=== PATIENT | female | born 1995 | race Caucasian/White ===

== ENCOUNTER 2021-11-29 12:31 | Emergency (ER) | payer OTHER, SELFPAY ==
[2021-11-29] VITALS (7 sets, daily range): BP systolic 102–119; BP diastolic 62–78; PULSE 70–90; RESP 16–110; TEMP 36.8; O2SAT 97–100; BMI 25.6
--- NOTE | 2021-11-29 12:27 | ECG_ITS ---
APPROVED REPORT Exam: Resting ECG HR:92 bpm ECG Measurements Heart Rate 92 AXES IN 163 P 68 QRSd 85 QRS 84 QT 358 T 49 QTc 408 Conclusion SINUS RHYTHM WITH SINUS ARRHYTHMIA NORMAL ECG UNCONFIRMED REPORT Electronically signed by : Shamir Bell MD 11/30/2021 15:10:50
--- NOTE | 2021-11-29 13:01 | PC.NURSE ---
ED MD AT BEDSIDE FOR EVALUATION
--- NOTE | 2021-11-29 13:06 | PC.NURSE ---
XR AT BEDSIDE
--- NOTE | 2021-11-29 13:06 | XR_ITS ---
PROCEDURE INFORMATION: Exam: XR Chest Exam date and time: 11/29/2021 1:47 PM Age: 26 years old Clinical indication: Chest wall pain; Additional info: L chest pain TECHNIQUE: Imaging protocol: Radiologic exam of the chest. Views: 1 view. COMPARISON: No relevant prior studies available. FINDINGS: Lungs: No acute airspace disease. Pleural spaces: No pleural effusion. Heart/Mediastinum: Normal configuration of the heart. Bones/joints: Unremarkable. IMPRESSION: No acute airspace or pleural disease.
[2021-11-29 13:17] LABS: Basophils # 0.1 K/mm3 (0-0.2); Eosinophils # 0.3 K/mm3 (0.0-0.4); Eosinophils % 3.3 % (0.1-12.0); Hemoglobin 14.7 g/dL (12.2-16.2); Lymphocytes # 1.1 K/mm3 (0.7-4.5); Lymphocytes % 14.5 % (10-50); Mean Corpuscular HGB Conc 33.5 g/dL (31.8-35.4); Mean Corpuscular Hemoglobin 28.3 pg (27.0-31.2); Mean Corpuscular Volume 84.6 fl (81-99); Mean Platelet Volume 9.8 fl (7.4-10.4); Monocytes # 0.6 K/mm3 (0.1-1.0); Monocytes % 7.2 % (1.7-9.3); Neutrophils # 5.9 K/mm3 (1.8-7.8); Neutrophils % 74.1 % (37.0-80.0); Platelet Count 287 K/mm3 (142-424); Red Cell Distribution Width 14.6 % (11.5-17.5); White Blood Count 7.9 K/mm3 (4.8-10.8)
[2021-11-29 13:19] LABS: Alanine Aminotransferase 21 U/L (12-78); Albumin/Globulin Ratio 1.3 (1.1-1.8); Alkaline Phosphatase 38 U/L (38-126); Anion Gap 12.1 mEq/L (5-15); Aspartate Amino Transferase 41 U/L (14-36); Blood Urea Nitrogen 11 mg/dl (7-17); Carbon Dioxide 29 mmol/L (22.0-30.0); Chloride 103 mmol/L (98-107); Creatinine Clearance Estimated 106 mL/min (50-200); Estimated Glomerular Filt Rate 86 ml/min (>60); GFR (African American) 104 ML/MIN (>60); Globulin 3.2 g/dL (1.3-3.2); Glucose 92 mg/dl (74-100); Potassium 4.1 mmoL/L (3.5-5.1); Sodium 140 mmol/L (136-145); Total Protein,Serum 7.2 g/dl (6.3-8.2)
[2021-11-29 13:21] LABS: Bilirubin,Total 0.1 mg/dl (0.2-1.3)
--- NOTE | 2021-11-29 13:22 | PC.NURSE ---
ROUNDED ON PT, NO NEEDS AT THIS TIME. CALL LIGHT WITHIN REACH
[2021-11-29 13:24] LABS: D-Dimer 0.51 ug/mL (0.0-0.5)
[2021-11-29 13:34] LABS: Troponin I < 0.01 ng/ml (0.00-0.034)
--- NOTE | 2021-11-29 13:41 | PC.NURSE ---
Radiology at bedside.
--- NOTE | 2021-11-29 14:03 | HMH.EDCP ---
Discharge Plan Disposition Patient Disposition: Home, Self-Care Condition: Good Chief Complaint: Chest Pain Prescriptions Prescriptions: No Action No Known Home Medications Referrals Follow up/Referrals: Provider,MD Brayden [Primary Care Provider] - See instructions Activity Restrictions/Add. Instructions Additional Instructions/Restrictions: Follow-up with cardiology, Holter monitor will will be in place for 48 hours and they will be able to interpret it. If you have any other concerning signs or symptoms, return to the emergency department for further evaluation, or your primary care provider. Clinical Impressions Clinical Impression: Chest pain Discharge ED Provider: Live Cai Chest Pain HPI General Chief Complaint: Chest Pain Stated Complaint: CHEST PAIN Time Seen by Provider: 11/29/21 12:45 Mode of Arrival: Ambulatory Source of Information: Patient Limitations: No Limitations Description of Symptoms (Recalled from ER Triage Doc. by RN): PT WITH SHARP CHEST PAIN THAT RADIATES TO LEFT SHOULDER. STARTED LAST NIGHT, IMPROVED SLIGHTLY. WOKE UP THIS AM AND CONTINUES TO HAVE PAIN. REPORTS COUGHT AND SHORTNESS OF AIR. STATES SHE AHS HX OF IRREGULAR HEART BEAT History of Present Illness HPI narrative: Is a 26-year-old female with history of DVT. Patient states they were lying in bed when she had acute onset left upper chest/left shoulder pain. It was 8 out of 10 last night, 7 out of 10 currently. Radiates to her left shoulder. associated with shortness of breath. Exertion exacerbates chest pain and shortness of breath. Tylenol and resting relieves her symptoms. Denies nausea, vomiting, fevers, chills, recent illness, neurologic deficits, or any other concerning history HELLEN Score for Stemi Age of Patient: <30 years old Heart Rate: 70-89 bpm Systolic Blood Pressure: 100-119 mmHg Serum Creatinine: 0.80-1.19 mg/dl CHF Killip Class: I-No CHF Other Risk Factors: None Stemi Risk Score: 59 Related Data Home Medications Medication Instructions Recorded Confirmed No Known Home Medications 11/29/21 11/29/21 Allergies Allergy/AdvReac Type Severity Reaction Status Date / Time latex AdvReac Verified 11/29/21 13:39 ondansetron [From Zofran] AdvReac Verified 11/29/21 13:39 PFSH PFSH Medical History (Updated 11/29/21 @ 15:05 by Live Cai MD) No significant past medical history Surgical History (Updated 11/29/21 @ 12:40 by Tessa El RN) Hx of cholecystectomy Family History (Updated 11/29/21 @ 12:38 by Tessa El RN) Other No significant family history Social History (Updated 11/29/21 @ 12:40 by Tessa El RN) Smoking Status: Never smoker alcohol intake: current current occupational status: employed Travel in the last 8 weeks: None ROS Obtained: Yes All systems reviewed & no additional complaints except as documented Physical Exam General General appearance: alert and in no apparent distress Head Head exam: atraumatic, normocephalic and normal inspection Eye Eye exam: Present normal appearance, PERRL and EOMI ENT ENT exam: Present normal exam, normal oropharynx, mucous membranes moist, TM's normal bilaterally and normal external ear exam Neck Neck exam: Present normal inspection, full ROM and trachea midline; Absent meningismus or lymphadenopathy Chest Chest inspection: Present normal inspection and symmetric chest wall rise; Absent tenderness Respiratory Respiratory exam: Present normal lung sounds bilaterally; Absent respiratory distress Cardiovascular Cardiovascular exam: Present regular rate and normal rhythm; Absent JVD Abdominal Exam Abdominal exam: Present soft and normal bowel sounds; Absent distention, tenderness or guarding Extremities Exam Extremities exam: Present normal inspection, full ROM and normal capillary refill; Absent calf tenderness Back Exam Back exam: Present normal inspection; Absent tenderness
--- NOTE | 2021-11-29 14:08 | CT_ITS ---
PROCEDURE INFORMATION: Exam: CTA Chest With Contrast Exam date and time: 11/29/2021 2:34 PM Age: 26 years old Clinical indication: Shortness of breath; Additional info: SOA, cp left, dimer TECHNIQUE: Imaging protocol: Computed tomographic angiography of the chest with contrast. 3D rendering (Not supervised by radiologist): MIP and/or 3D reconstructed images were created by the technologist. Radiation optimization: All CT scans at this facility use at least one of these dose optimization techniques: automated exposure control; mA and/or kV adjustment per patient size (includes targeted exams where dose is matched to clinical indication); or iterative reconstruction. Contrast material: ISOVUE; Contrast volume: 70 ml; Contrast route: INTRAVENOUS (IV); COMPARISON: CR XR CHEST PORTABLE 11/29/2021 1:47 PM FINDINGS: Pulmonary arteries: Limited opacification of the pulmonary arteries due to bolus timing, with an attenuation coefficient in the main pulmonary artery of to 203 HU, compared with an attenuation coefficient in the ascending thoracic aorta of 273 HU. No pulmonary embolus in the central pulmonary arteries. Aorta: Normal caliber of the thoracic aorta. Lungs: Mild interstitial prominence. Pleural spaces: No pleural effusion. Heart: No cardiomegaly or significant coronary artery calcification. Lymph nodes: Subcentimeter lymph nodes. Upper abdomen: Fatty infiltration of the liver. Enlarged spleen measures 13.2 cm in length. Status post cholecystectomy. Borderline pancreatic ductal dilatation. Bones/joints: Schmorl's nodes and vertebral endplate irregularity. Soft tissues: Unremarkable. IMPRESSION: 1. Limited opacification of the pulmonary arteries due to bolus timing. No pulmonary embolus in the central pulmonary arteries. 2. No acute airspace or pleural disease. 3. Additional findings as described above.
[2021-11-29 14:13] LABS: HCG,Quantitative < 2 mIU/ml (0-5.42)
== END 2021-11-29 16:00 | disposition home or self-care (01) ==
PROVIDERS: Emergency Provider Emergency Medicine
DX: R07.9 Chest pain, unspecified (principal); M25.512 Pain in left shoulder; R06.02 Shortness of breath; R05.9 Cough, unspecified; I49.9 Cardiac arrhythmia, unspecified; F41.9 Anxiety disorder, unspecified; Z88.8 Allergy status to other drugs, medicaments and biological substances; Z91.040 Latex allergy status; Z86.718 Personal history of other venous thrombosis and embolism
CPT/HCPCS: 71045; 71275; 80053; 84484; 84702; 85025; 85378; 93005; 93225; 93226; 99285

== ENCOUNTER → 2021-12-18 09:11 | Outpatient (CLI) | payer OTHER, SELFPAY ==
--- NOTE | 2021-12-18 09:13 | CA_ITS ---
APPROVED REPORT EXAM: Comprehensive 2D, Doppler, and color-flow Echocardiogram Linen Tech: Hiwot Cesar RDCS Ht: 5 ft 2 in Wt: 157lbs BSA: 1.72 BP: 120/70 mmHg Indications: SOA 2D Dimensions LVOT 1.86 cm (M/F) 1.5-2.5 M-Mode Dimensions RVDd 2.47 cm (0.9-2.6) LA Diam 2.94 cm (1.9-4.0) LVDd 4.45 cm (3.5-5.7) Ao Diam 2.86 cm (2.0-3.7) LVDs 3.20 cm (3.5-5.7) IVSd 0.47 cm (0.6-1.1) PWd 0.58 cm (0.6-1.1) EF (Teich) 54.50% FS 28.10% EDV (Teich) 90.10 mL ESV (Teich) 41.00 mL LV Diastology E Decel Time 173.00 (160-240 msec) E/A Ratio 1.5 MED E' 12.30 (< 7 cm/sec) E'/MED E' Ratio 5.61 (>14) LAT E' 5.10 (<10 cm/sec) E/LAT E' Ratio 13.53 (>14) Mitral Valve MV E Max Evangelista. 69.00 (40-130 cm/s) MV A Velocity 46.00 (40-130 cm/s) E/A Ratio 1.51 MV Decel. Time 173.00 (160-240 ms) MV PHT 51.00 ms Left Ventricle Left atrium is normal size, left ventricle is normal size there is no concentric left ventricular hypertrophy, estimated ejection fraction 55% with no regional wall motion abnormality, diastolic parameters are within normal range. Right Ventricle Right atrium and right ventricle are normal size and contractility. Aortic Valve Aortic valve is grossly normal there is no aortic stenosis or aortic insufficiency. Mitral Valve Mitral valve grossly normal, there is trace mitral regurgitation. Tricuspid Valve Tricuspid grossly normal, there is trace tricuspid regurgitation, tricuspid regurgitation jet velocity is inadequate for calculation of the right ventricular systolic pressure. Pulmonic Valve Pulmonic valve is poorly visualized. Great Vessels Aortic root is normal size. Inferior vena cava is normal size with normal inspiratory collapse. Pericardium No significant pericardial effusion noted. Conclusion 1. Normal left ventricular size preserved left ventricular systolic function, estimated ejection fraction 55% with no regional wall motion abnormality, diastolic parameters are within normal range. 2. Trace mitral and tricuspid regurgitation. 3. No significant pericardial effusion. 4. Inferior vena cava is normal size with normal inspiratory collapse. Electronically signed by : Ritchie Castle MD 12/19/2021 14:57:22
--- NOTE | 2021-12-18 09:13 | CA_ITS ---
APPROVED REPORT Exam: Exercise Treadmill Technologist: JOSE ANTONIO BAUTISTA, Ht: 5 ft 2 in Wt: 157 lbs BSA: 1.72 m2 HR: 84 bpm BP: 116/68 mmHg Rhythm: NSR,normal Indications: SOA; CP Medical History Medications: Tylenol,,,,, Allergies: LATEX,ZOFRAN Cardiac Risk Factors: FHX of CAD Stress Test Details Test: Zachayr HR Resting HR: 91 bpm Max Heart Rate (APMHR): 193.533134 bpm Max HR Achieved: 154 bpm Target HR (85% APMHR): 164.727367 bpm % of APMHR: 79.79 Recovery HR: 125 bpm BP Resting BP: 95.0/58.0 mmHg Max BP: 118.0/60.0 mmHg Recovery BP: 115.0/55.0 mmHg ECG Resting ECG: NSR,NORMAL Clinical Exercise duration: 09:10 min Highest Stage Achieved: Exercise capacity: 10.1 METs Stress ECG Conclusion PATIENT EXERCISED 9:10 INTO STAGE 4 OF ZACHARY PROTOCOL,STOPPING DUE TO SOA. MAX HEART RATE 154 BPM WHICH IS 80% OF PM FOR AGE. MAX BP 1118/60. METS = 10.1. TEST STOPPED DUE TO SOA. PATIENT HAD DYSPNEA AND CHEST PRESSURE. NO ARRHYTHMIAS/ECTOPY. ALLOWING FOR MOTION ARTIFACT,THE ST RESPONSE TO EXERCISE IS WITHIN NORMAL. NORMAL GXT TO HR ACHIEVED(80% OF PM GXT ONLY(NO IMAGING) Test Summary REST . . . . . . . Resting Sitting REST . . . . . . . Standing REST 11:25 0.0 0.0 91 . 95/ 58 . . Stage 1 01:00 10.0 1.7 102 . . . . Stage 1 02:00 10.0 1.7 0 . . . . Stage 1 03:00 10.0 1.7 105 . . . . Stage 2 01:00 12.0 2.5 114 . . . . Stage 2 02:00 12.0 2.5 128 . . . . Stage 2 03:00 12.0 2.5 135 . 118/ 60 . . Stage 3 01:00 14.0 3.4 139 . . . . Stage 3 02:00 14.0 3.4 141 . . . . Stage 3 03:00 14.0 3.4 146 . . . . Stage 4 00:10 16.0 4.2 149 . 118/ 60 . Stop exercise at 09:10 RECOVERY 01:00 0.0 0.0 125 . . . . RECOVERY 02:00 0.0 0.0 103 . . . . RECOVERY 03:00 0.0 0.0 105 . 115/ 55 . . RECOVERY 04:00 0.0 0.0 96 . 115/ 55 . . RECOVERY 05:00 0.0 0.0 105 . 106/ 50 . . RECOVERY 06:00 0.0 0.0 109 . 101/ 59 . . RECOVERY 06:20 0.0 0.0 101 . 101/ 59 . . Electronically signed by : Ritchie Castle MD 12/19/2021 13:05:37
== END ==
PROVIDERS: PCP Internal Medicine; Visit Provider Nurse Practitioner Family
DX: R06.09 Other forms of dyspnea (principal); R07.89 Other chest pain; R42 Dizziness and giddiness
CPT/HCPCS: 93017; 93306

== ENCOUNTER → 2022-02-25 14:30 | Outpatient (CLI) | payer OTHER, SELFPAY ==
[2022-02-26 09:01] LABS: Basophils # 0.1 K/mm3 (0-0.2); Basophils % 0.7 % (0.1-2.0); Eosinophils # 0.1 K/mm3 (0.0-0.4); Eosinophils % 1.1 % (0.1-12.0); Hematocrit 45.1 % (37.0-47.0); Hemoglobin 14.1 g/dL (12.2-16.2); Lymphocytes % 21.5 % (10-50); Mean Corpuscular HGB Conc 31.2 g/dL (31.8-35.4); Mean Corpuscular Hemoglobin 27.2 pg (27.0-31.2); Mean Corpuscular Volume 87.3 fl (81-99); Mean Platelet Volume 11.1 fl (7.4-10.4); Monocytes # 0.6 K/mm3 (0.1-1.0); Monocytes % 5.9 % (1.7-9.3); Neutrophils # 6.6 K/mm3 (1.8-7.8); Neutrophils % 70.8 % (37.0-80.0); Platelet Count 401 K/mm3 (142-424); Red Blood Count 5.17 M/mm3 (4.20-5.40); Red Cell Distribution Width 14.1 % (11.5-17.5); White Blood Count 9.4 K/mm3 (4.8-10.8)
[2022-02-26 09:43] LABS: 25-OH Vitamin D, Total 16.3 ng/mL (30-100)
[2022-02-26 11:13] LABS: Chol/HDL Ratio 3.2 (1-3.5); Cholesterol 214 mg/dl (140-200); HDL Cholesterol 67 mg/dl (40-60); Triglycerides 167 mg/dl (30-150); VLDL Cholesterol 33 mg/dL (0-40)
[2022-02-26 11:23] LABS: Direct LDL Cholesterol 103.83 mg/dL (100-129)
[2022-02-26 11:44] LABS: Thyroid Stimulating Hormone 1.28 uIU/mL (0.465-4.68)
[2022-02-26 12:03] LABS: Vitamin B12 589 pg/mL (239-931)
== END ==
PROVIDERS: PCP Physician Assistant; Visit Provider Physician Assistant
DX: Z00.00 Encounter for general adult medical examination without abnormal findings (principal); E55.9 Vitamin D deficiency, unspecified; Z79.899 Other long term (current) drug therapy
CPT/HCPCS: 80061; 82306; 82607; 84443; 85025

== ENCOUNTER → 2022-03-10 14:31 | Outpatient (CLI) | payer OTHER, SELFPAY | PROVIDERS: PCP Physician Assistant; Visit Provider Physician Assistant | DX: R06.81 Apnea, not elsewhere classified (principal); R40.0 Somnolence; R06.83 Snoring | CPT/HCPCS: 95806 ==

== ENCOUNTER 2022-03-12 10:20 | Day surgery (SDC) | payer OTHER, SELFPAY ==
[2022-03-12 10:51] VITALS: BMI 31.2
[2022-03-12 11:07] LABS: Urine Pregnancy, HCG Qual. Negative (Negative)
[2022-03-12 11:12] VITALS: BP 112/76; PULSE 94; RESP 16; TEMP 36.3; O2SAT 98
[2022-03-12 12:14] VITALS: BP 114/60; PULSE 87; RESP 14; TEMP 36.5; O2SAT 100
--- NOTE | 2022-03-12 12:25 | P.OP_ITS ---
Date of procedure: 03/12/22 Pre-op Diagnosis:: Pedunculated skin lesion along left buttock (1.2 cm) Post-op Diagnosis:: Same with the addition of the following: Lipomatous left buttock lesion Procedure performed:: Excision of pedunculated skin lesion with underlying lipoma from left buttock (1.2 cm) Surgeon:: Rogelio Johnson MD Anesthesia: MAC and local Estimated blood loss (mL): 10 Operative findings:: Underlying lipomatous growth in shallow subcutaneous tissue Operative note:: After informed consent was obtained the patient was taken to the operating room and placed in the right lateral decubitus position. Her left buttock region was prepped and draped in a sterile fashion. After infiltration local anesthetic an elliptical incision was made around the lesion. Underlying lipomatous growth in the shallow subcutaneous tissue was noted. Entire lesion was excised in toto utilizing sharp dissection and electrocautery. It was passed off for pathologic evaluation. Electrocautery was utilized to achieve hemostasis. Skin was beltran pproximated with interrupted 4-0 nylon. Dressings were applied and the patient was transferred to recovery in stable condition. Condition: stable Disposition: PACU Specimens:: Left buttock pedunculated skin lesion with underlying lipomatous growth Complications:: No immediate
[2022-03-12 12:29] VITALS: BP 112/63; PULSE 90; RESP 16; O2SAT 100
[2022-03-12 12:44] VITALS: BP 108/65; PULSE 86; RESP 16; O2SAT 100
== END 2022-03-12 12:50 | disposition home or self-care (01) ==
PROVIDERS: PCP Physician Assistant; Visit Provider Surgery
PROC: (CPT 11404; principal; 2022-03-12 12:45)
DX: D17.1 Benign lipomatous neoplasm of skin and subcutaneous tissue of trunk (principal); Z79.899 Other long term (current) drug therapy
CPT/HCPCS: 11404; 81025; 96374

== ENCOUNTER 2022-03-13 13:00 | Outpatient (RCR) | payer OTHER, SELFPAY | END 2022-03-13 13:05 | disposition home or self-care (01) | LOC: OT 13:00 | PROVIDERS: PCP Physician Assistant; Visit Provider Orthopaedic Surgery Adult Reconstructive Orthopaedic Surgery | DX: G56.01 Carpal tunnel syndrome, right upper limb (principal) | CPT/HCPCS: 97010; 97014; 97035; 97110; 97140; 97165; G0283 ==

== ENCOUNTER → 2022-03-18 09:51 | Outpatient (CLI) | payer OTHER, SELFPAY ==
--- NOTE | 2022-03-18 09:57 | XR_ITS ---
FINAL REPORT CLINICAL HISTORY: Back pain FINDINGS: SCOLIOSIS EVALUATION Two views of the thoracolumbar spine were obtained. There is no measurable scoliosis. There are no vertebral anomalies. IMPRESSION: No measurable scoliosis. Reviewed, Interpreted and Dictated by Hillary Rhodes MD Transcribed by Danika Kang Authenticated and [facility]
== END ==
PROVIDERS: PCP Physician Assistant; Visit Provider Physician Assistant
DX: M41.9 Scoliosis, unspecified (principal)
CPT/HCPCS: 72081

== ENCOUNTER 2022-03-23 10:45 | Emergency (ER) | payer OTHER, SELFPAY ==
--- NOTE | 2022-03-23 10:51 | EXP.UTC ---
Discharge Plan Disposition Patient Disposition: Home, Self-Care Condition: Good Prescriptions Prescriptions: New methylprednisolone 4 mg Tablets,Dose Pack 4 mg PO DIRECTED Qty: 21 0RF [id number] [Bromfed DM] 2-30-10 mg/5 mL Syrup 5 ml PO Q6H PRN (Reason: Cough) Qty: 240 0RF promethazine 25 mg Tablet 25 mg PO Q6H PRN (Reason: Nausea And Vomiting) Qty: 20 0RF No Action azelastine 205.5 mcg (0.15 %) spray,non-aerosol 2 spray intranasal DAILY Qty: 30 2RF Rx Instructions: administer into each nostril fluticasone propionate [Flonase Allergy Relief] 50 mcg/actuation spray,suspension 2 spray intranasal DAILY Qty: 16 3RF Rx Instructions: administer into each nostril Vraylar 1.5 mg capsule 1.5 mg PO DAILY Label Comments: TAKE 1 CAPSULE BY MOUTH ONCE DAILY buspirone 5 mg tablet 5 mg PO BID ergocalciferol (vitamin D2) 1,250 mcg (50,000 unit) capsule 1,250 mcg PO WEEKLY cholecalciferol (vitamin D3) 25 mcg (1,000 unit) capsule 25 mcg PO DAILY Referrals Follow up/Referrals: Miesha Schultz PA [Primary Care Provider] - See instructions Activity Restrictions/Add. Instructions Additional Instructions/Restrictions: Drink plenty of fluids. Take tylenol or ibuprofen for pain or fever. Take the medications as directed. Follow up with your regular doctor. GO TO THE ER FOR ANY WORSENING SYMPTOMS Clinical Impressions Clinical Impression: Asthma, Acute viral syndrome Stand Alone Forms Stand Alone Forms: Work/School Release Discharge ED Provider: Carlos Zarate [facility] General Stated complaint: Cough,Congestion,Sore throat Time Seen by Provider: 03/23/22 10:51 History of Present Illness Provider Complaint: She states that for the past 2 days she has had a cough, sore throat, body aches, and a low grade fever. Related Data Home Medications Medication Instructions Recorded Confirmed buspirone 5 mg tablet 5 mg PO BID Depression 03/12/22 03/18/22 cariprazine 1.5 mg capsule 1.5 mg PO DAILY Anxiety 03/12/22 03/18/22 (Vraylar) cholecalciferol (vitamin D3) 25 25 mcg PO DAILY Supplement 03/12/22 03/18/22 mcg (1,000 unit) capsule ergocalciferol (vitamin D2) 1,250 1,250 mcg PO WEEKLY Supplement 03/12/22 03/18/22 mcg (50,000 unit) capsule Previous Rx's Medication Instructions Recorded azelastine 205.5 mcg (0.15 %) 2 spray intranasal DAILY #30 mL 03/18/22 nasal spray fluticasone propionate 50 2 spray intranasal DAILY #16 grams 03/18/22 mcg/actuation nasal spray,suspension (Flonase Allergy Relief) suusryayahjecyv-ueujqfmuxaopmhe-HZ 5 ml PO Q6H PRN Cough #240 mL 03/23/22 2 mg-30 mg-10 mg/5 mL oral syrup (Bromfed DM) methylprednisolone 4 mg tablets in 4 mg PO DIRECTED #21 tabs 03/23/22 a dose pack promethazine 25 mg tablet 25 mg PO Q6H PRN Nausea And 03/23/22 Vomiting #20 tabs Allergies Allergy/AdvReac Type Severity Reaction Status Date / Time ondansetron [From Zofran] Allergy Redness of Verified 03/18/22 12:58 Skin latex AdvReac Verified 03/18/22 12:58 PFSH PFSH Disclaimer: The information contained in this section may have been updated after the patient was seen, as this information can be updated by other users. Medical History Anxiety Asthma Cryptic tonsil Depression Deviated nasal septum Hypertrophy of nasal turbinates Left ear pain Otosclerosis Surgical History Carpal tunnel syndrome History of placement of ear tubes Hx of cholecystectomy Family History Grandmother Stroke Hypertension Grandfather Heart attack Hypertension Father Hypertension Other Asthma Social History Smoking Status: Former smoker alcohol intake: never current occ
[2022-03-23 11:10] VITALS: BP 123/72; PULSE 86; RESP 19; TEMP 36.9; O2SAT 97; BMI 32.1
[2022-03-23 11:19] LABS: UTC Strep Screen (Rapid) Negative (Negative)
[2022-03-23 12:04] VITALS: BP 123/72; PULSE 86; RESP 19; TEMP 36.9; O2SAT 97
== END 2022-03-23 12:04 | disposition home or self-care (01) ==
PROVIDERS: Emergency Provider Nurse Practitioner Family; PCP Physician Assistant
DX: J45.909 Unspecified asthma, uncomplicated (principal); B34.9 Viral infection, unspecified
CPT/HCPCS: 87880; 99212; 99213; G0463

== ENCOUNTER → 2022-03-25 13:09 | Outpatient (POV) | payer OTHER, SELFPAY | PROVIDERS: Visit Provider Specialist/Technologist | DX: Z00.00 Encounter for general adult medical examination without abnormal findings (principal) ==

== ENCOUNTER → 2022-04-02 11:37 | Outpatient (CLI) | payer OTHER, SELFPAY ==
[2022-04-02 13:25] LABS: Ferritin 13.9 ng/ml (6.24-137)
[2022-04-09 18:09] LABS: Narcolepsy DQA1*01:02 Positive (.); Narcolepsy DQB1*06:02 Positive (.)
== END ==
PROVIDERS: PCP Physician Assistant; Visit Provider Specialist
DX: E83.10 Disorder of iron metabolism, unspecified (principal); G25.81 Restless legs syndrome; G47.10 Hypersomnia, unspecified
CPT/HCPCS: 36415; 81383; 82728

== ENCOUNTER → 2022-04-16 15:11 | Outpatient (CLI) | payer OTHER, SELFPAY | PROVIDERS: PCP Physician Assistant; Visit Provider Physician Assistant | DX: R22.2 Localized swelling, mass and lump, trunk (principal); B95.2 Enterococcus as the cause of diseases classified elsewhere; Z51.89 Encounter for other specified aftercare | CPT/HCPCS: 87070; 87077; 87186; 87205 ==

== ENCOUNTER 2022-04-29 06:58 | Day surgery (SDC) | payer OTHER, SELFPAY ==
[2022-04-29] VITALS (13 sets, daily range): BP systolic 113–143; BP diastolic 68–93; PULSE 61–99; RESP 15–19; TEMP 36.6–43; O2SAT 92–97; BMI 32.9
[2022-04-29 07:13] LABS: Urine Pregnancy, HCG Qual. Negative (Negative)
--- NOTE | 2022-04-29 08:09 | P.PN_ITS ---
[facility] Disclaimer: The information contained in this section may have been updated after the patient was seen, as this information can be updated by other users. Medical History Anxiety Asthma Cryptic tonsil Depression Deviated nasal septum Hypertrophy of nasal turbinates Left ear pain Otosclerosis Sleep apnea Surgical History Carpal tunnel syndrome History of placement of ear tubes Hx of cholecystectomy Family History Grandmother Stroke Hypertension Grandfather Heart attack Hypertension Father Hypertension Other Asthma Social History Smoking Status: Former smoker alcohol intake: never substance use type: denies use current occupational status: unemployed Travel in the last 8 weeks: None [facility] Anesthesia Checklist Patient Identification Patient Identification: Arm Band and Verbal (Name & ) Structural Data Admitted From: Home Planned Operative Procedure/s: Tonsillectomy, BMT Consent for Planned Operative Procedure(s) Verified: Yes NPO Status Verified Time NPO: 00:00 Chart Verification Results Verified: HCG Additional verifications Anesthesia Reactions: No Hx Blood Transfusions: No Blood Transfusion Reaction: No Airway Assessment C-Spine Mobility Assessed: Yes TMJ Mobility Assessed: No Dentition: Good Dentition Neurological Assessment Level of Consciousness: Awake Hx Seizures: No Numbness or tingling in extremities: No Anesthesia Plan Anesthesia Risk discussed: Yes Anesthesia Plan: Verified ASA Class: II Anesthesia Type: General
--- NOTE | 2022-04-29 09:47 | EXP.OP.NOTE ---
Date of procedure: 04/29/22 Pre-op Diagnosis:: ETD, ROM, recurrent tonsillitis Post-op Diagnosis:: same Procedure performed:: bilateral myringotomy with tube placement (t-tubes), bilateral submucosal inferior turbinate reduction, tonsillectomy, adenoidectomy Surgeon:: Tan Curry MD Anesthesia: GETA Estimated blood loss (mL): 10 Operative findings:: 1. mild serous effusions bilaterally 2. significant tympanosclerosis bilaterally 3. b/l ITH 4. 1+ adenoids 5. 3+ tonsils Operative note:: The patient was brought to the OR and laid?in supine position. General anesthesia was induced. Patient was prepped and draped in the usual fashion. First in the left ear, myringotomy was made in the anterior-inferior quadrant. There was significant tympanosclerosis present. A mild serous effusion was suctioned from the middle ear space. T- tube was placed and then ear?drops was instilled into the ear. Then, I turned my attention towards the right ear. Again, a myringotomy was made in the anterior-inferior quadrant. There was again significant tympanosclerosis. A mild serous?effusion was suctioned from the middle ear space.?T-tube was placed and then?ear?drops was instilled into the ear. Patient was then turned back over to anesthesia to be awoken. The patient's nares were decongested with afrin soaked pledgets. Stabe incision was made at the head of each inferior turbinate. The mucosa was dissected off the underlying bone. A submucosal resection was then performed bilaterally with the mircodebrider. They were then outfractured. Their mouth was suspended with a?Caridad-Abelino mouth gag. Examination of the palate revealed no palatal clefts. The palate was elevated with a jiang catheter. Mirror examination revealed? 1 +?adenoid hypertrophy. Adenoids were taken down with the?suction bovie. I then turned my attention towards the tonsils. The patient had 3+ tonsils bilaterally. First the right tonsil, and then the left tonsil were excised with Bovie?cautery.?Hemostasis?was then achieved with suction?cautery. The?patient's?nose and mouth were then thoroughly irrigated and suctioned out. Marcaine-soaked tonsil balls were placed in the?tonsillar?fossae?for local anesthetic. These were then removed. Stomach was suctioned with an OG tube. All counts were confirmed correct. They were?then turned back over to anesthesia to be awoken and?extubated.? Condition: stable Disposition: PACU Complications:: none
--- NOTE | 2022-04-29 09:55 | EXP.ANES.I ---
[facility] Anesthesia Record Part I Anesthesia Record I Intake, IV Amount: 500 Estimated blood loss (mL): 10 Urine output (mL): 0 Blood Pressure: 137/93 SaO2: 93 Pulse Rate: 68 Respiratory Rate: 19 Temperature: 97.8 F Patient is:: Awake Stable to PACU at:: 09:54
--- NOTE | 2022-04-29 11:53 | EXP.ANES.II ---
[facility] Anesthesia Record Part II Anesthesia Record Part II Discharge Time: 10:25 Destination: Surgical Day Care (OP Surgery) PACU nurse assessment reviewed?: Yes Patient Condition:: Good Anesthesia Complications:: None Swallowing reflex intact?: Yes Cyanosis?: No Blood Pressure: 124/79 Pulse Rate: 84 Temperature: 98.7 F Mental Status: Alert & Oriented Pain level:: 0 Nausea and/or vomitting:: None Intake, IV Amount: 0
== END 2022-04-29 10:55 | disposition home or self-care (01) ==
PROVIDERS: PCP Physician Assistant; Visit Provider Student in an Organized Health Care Education/Training Program
PROC: (CPT 42821; principal; 2022-04-29 08:45)
DX: J35.01 Chronic tonsillitis (principal); H74.03 Tympanosclerosis, bilateral; J34.3 Hypertrophy of nasal turbinates; H66.90 Otitis media, unspecified, unspecified ear; Z79.899 Other long term (current) drug therapy
CPT/HCPCS: 42821; 69436; 30140; 81025; J0131

== ENCOUNTER 2022-06-21 22:09 | Emergency (ER) | payer OTHER, SELFPAY ==
[2022-06-21 22:09] VITALS: BP 134/84; PULSE 97; RESP 16; TEMP 36.9; O2SAT 99; BMI 30.9
--- NOTE | 2022-06-21 22:13 | XR_ITS ---
PROCEDURE INFORMATION: Exam: XR Chest Exam date and time: 06/21/2022 10:13 PM Age: 26 years old Clinical indication: Pain; Chest pressure; Additional info: Cp TECHNIQUE: Imaging protocol: Radiologic exam of the chest. Views: 2 views. COMPARISON: CR XR CHEST PORTABLE 11/29/2021 1:47 PM FINDINGS: Lungs: Unremarkable. No consolidation. Pleural spaces: Unremarkable. No pleural effusion. No pneumothorax. Heart/Mediastinum: Unremarkable. No cardiomegaly. Bones/joints: Unremarkable. IMPRESSION: No acute findings.
[2022-06-21 22:30] VITALS: BP 110/53; PULSE 106; O2SAT 96
[2022-06-21 22:34] LABS: Chloride 102 mmol/L (98-107)
[2022-06-21 22:35] LABS: Potassium 3.9 mmoL/L (3.5-5.1); Sodium 138 mmol/L (136-145)
[2022-06-21 22:37] LABS: Coronavirus 19, PCR Not Detected (NotDetected); Influenza A, PCR Not Detected (NotDetected); Influenza B, PCR Not Detected (NotDetected)
[2022-06-21 22:37] LABS: Amylase 95 U/L (30-110)
[2022-06-21 22:38] LABS: Alanine Aminotransferase 22 U/L (12-78); Albumin Level 4.6 g/dl (3.5-5.0); Albumin/Globulin Ratio 1.2 (1.1-1.8); Alkaline Phosphatase 28 U/L (38-126); Anion Gap 14.9 mEq/L (5-15); Aspartate Amino Transferase 53 U/L (14-36); Bilirubin,Total 0.5 mg/dl (0.2-1.3); Blood Urea Nitrogen 12 mg/dl (7-17); Calcium 9.5 mg/dl (8.4-10.2); Carbon Dioxide 25 mmol/L (22.0-30.0); Creatinine Clearance Estimated 151 mL/min (50-200); Estimated Glomerular Filt Rate 100 ml/min (>60); GFR (African American) 121 ML/MIN (>60); Globulin 3.7 g/dL (1.3-3.2); Glucose 90 mg/dl (74-100); Lipase 159 U/L (23-300); Total Protein,Serum 8.3 g/dl (6.3-8.2)
[2022-06-21 22:44] LABS: C-Reactive Protein 3.7 mg/L (0-4)
[2022-06-21 22:45] LABS: Basophils # 0.1 K/mm3 (0-0.2); Basophils % 0.4 % (0.1-2.0); Eosinophils # 0.4 K/mm3 (0.0-0.4); Eosinophils % 3.8 % (0.1-12.0); Hematocrit 41.8 % (37.0-47.0); Hemoglobin 13.6 g/dL (12.2-16.2); Lymphocytes # 3.1 K/mm3 (0.7-4.5); Lymphocytes % 26.4 % (10-50); Mean Corpuscular HGB Conc 32.6 g/dL (31.8-35.4); Mean Corpuscular Hemoglobin 26.6 pg (27.0-31.2); Mean Corpuscular Volume 81.9 fl (81-99); Mean Platelet Volume 9.6 fl (7.4-10.4); Monocytes # 0.7 K/mm3 (0.1-1.0); Monocytes % 5.9 % (1.7-9.3); Neutrophils # 7.4 K/mm3 (1.8-7.8); Neutrophils % 63.5 % (37.0-80.0); Platelet Count 304 K/mm3 (142-424); Red Blood Count 5.11 M/mm3 (4.20-5.40); Red Cell Distribution Width 14.3 % (11.5-17.5); White Blood Count 11.7 K/mm3 (4.8-10.8)
[2022-06-21 22:55] LABS: Troponin I < 0.01 ng/ml (0.00-0.034)
[2022-06-21 23:00] VITALS: BP 112/77; PULSE 103; O2SAT 98
--- NOTE | 2022-06-21 23:00 | ECG_ITS ---
APPROVED REPORT Exam: Resting ECG HR:97 bpm ECG Measurements Heart Rate 97 AXES TX 150 P 64 QRSd 88 QRS 71 QT 358 T 48 QTc 413 Conclusion SINUS RHYTHM NORMAL ECG UNCONFIRMED REPORT Electronically signed by : Shamir Bell MD 06/22/2022 20:21:20
--- NOTE | 2022-06-21 23:09 | [facility]H.EDCP ---
Discharge Plan Disposition Patient Disposition: Home, Self-Care Prescriptions Prescriptions: New azithromycin [azithromycin] 250 mg tablet 250 mg PO DIRECTED Qty: 6 0RF Rx Instructions: Take two (2) tablets on day #1, then one (1) tablet day #2 thru #5 benzonatate 100 mg Capsule 100 mg PO Q8H Qty: 20 0RF prednisone [prednisone] 20 mg tablet 20 mg PO BID Qty: 10 0RF No Action modafinil [Provigil] 100 mg tablet 100 mg PO DAILY Qty: 30 0RF Vraylar 1.5 mg capsule 1.5 mg PO DAILY Label Comments: TAKE 1 CAPSULE BY MOUTH ONCE DAILY ergocalciferol (vitamin D2) 1,250 mcg (50,000 unit) capsule 1,250 mcg PO WEEKLY cholecalciferol (vitamin D3) 25 mcg (1,000 unit) capsule 25 mcg PO DAILY fluticasone propion-salmeterol [Advair Diskus] 100-50 mcg/dose blister with device 1 inh inhalation BID azelastine 205.5 mcg (0.15 %) spray,non-aerosol 2 spray intranasal DAILY Rx Instructions: administer into each nostril fluticasone propionate [Flonase Allergy Relief] 50 mcg/actuation spray,suspension 2 spray intranasal DAILY Rx Instructions: administer into each nostril famotidine 20 mg tablet 20 mg PO DAILY albuterol sulfate [Proventil HFA] 90 mcg/actuation HFA aerosol inhaler 2 puff inhalation Q6H Referrals Follow up/Referrals: Miesha Schultz PA [Primary Care Provider] - See instructions Clinical Impressions Clinical Impression: Bronchitis, Asthma Instructions Patient Instructions: DI for Acute Bronchitis Discharge ED Provider: Keo (ED)Butch Chest Pain HPI General Chief Complaint: Chest Pain Stated Complaint: CP Time Seen by Provider: 06/21/22 22:25 Mode of Arrival: Ambulatory Source of Information: Patient and Medical Record Limitations: No Limitations Description of Symptoms (Recalled from ER Triage Doc. by RN): Pt arrives to ED with c/o chest pain and shortness of breath since last night. Pt has hx of asthma, but states her Albuterol inhaler is not helping her. 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 -pt with hx of asthma and has been using inhalers - complaint: chest pain Onset (ago): day(s) Duration: intermittent Pain location: left chest Severity: moderate Exacerbating factors: other (cough ) Risk Factors for CAD: Family Hx of CAD Treatments prior to or on arrival for Cardiac Chest Pain: none HELLEN Score for Non-Stemi Age of Patient: <30 years old Heart Rate: 90-109 bpm Systolic Blood Pressure: 100-119 mmHg Serum Creatinine: 0.40-0.79 mg/dl CHF [place] Class: I-No CHF Other Risk Factors: None Non-Stemi Risk Score: 62 Risk Stratification: 1-108 = Low Risk Related Data On Oral Contraceptives: No Home Medications Medication Instructions Recorded Confirmed cariprazine 1.5 mg capsule 1.5 mg PO DAILY Anxiety 03/12/22 06/21/22 (Vraylar) cholecalciferol (vitamin D3) 25 25 mcg PO DAILY Supplement 03/12/22 06/21/22 mcg (1,000 unit) capsule ergocalciferol (vitamin D2) 1,250 1,250 mcg PO WEEKLY Supplement 03/12/22 06/21/22 mcg (50,000 unit) capsule azelastine 205.5 mcg (0.15 %) 2 spray intranasal DAILY allergies 04/27/22 06/21/22 nasal spray fluticasone 100 mcg-salmeterol 50 1 inh inhalation BID Asthma 04/27/22 06/21/22 mcg/dose blistr powdr for inhalation (Advair Diskus) fluticasone propionate 50 2 spray intranasal DAILY allergies 04/29/22 06/21/22 mcg/actuation nasal spray,suspension (Flonase Allergy Relief) albuterol sulfate 90 mcg/actuation 2 puff inhalation Q6H Allergy 06/21/22 06/21/22 aerosol inhaler (Proventil HFA) symptoms famotidine 20 mg tablet 20 mg PO DAILY Acid reflux 06/21/22 06/21/22 Previous Rx's Medication Instructions Recorded modafinil 100 mg tablet (Provigil) 100 mg PO DAILY mood #30 tabs 05/25/22 azithromycin 250 mg tablet 250 mg PO DIRECTED #6 tabs 06/22/22
[2022-06-21 23:31] LABS: Erythrocyte Sedimentation Rate 21 mm/hr (0-20)
[2022-06-22 00:27] VITALS: BP 114/65; PULSE 82; RESP 16; TEMP 36.7; O2SAT 97
== END 2022-06-22 00:38 | disposition home or self-care (01) ==
PROVIDERS: Emergency Provider Emergency Medicine; PCP Physician Assistant
DX: R07.9 Chest pain, unspecified (principal); J40 Bronchitis, not specified as acute or chronic; J45.909 Unspecified asthma, uncomplicated
CPT/HCPCS: 71046; 80053; 82150; 83690; 84484; 85025; 85651; 86140; 93005; 96360; 96374; 96375; 99285; C9803; U0003; U0005

== ENCOUNTER → 2022-07-24 23:39 | Outpatient (CLI) | payer OTHER, SELFPAY ==
[2022-07-24 17:10] LABS: Adenovirus,PCR Not Detected (NotDetected); Bordetella Pertussis Not Detected (NotDetected); Chlamydophila Pneumoniae, PCR Not Detected (NotDetected); Coronavirus 19, PCR Not Detected (NotDetected); Coronavirus 229E Not Detected (NotDetected); Coronavirus NL63 Not Detected (NotDetected); Coronavirus OC43 Not Detected (NotDetected); Coronovirus HKU1,PCR Not Detected (NotDetected); Human Metapneumovirus Not Detected (NotDetected); Influenza A, PCR Not Detected (NotDetected); Influenza AH1, 2009 Not Detected (NotDetected); Influenza AH1, PCR Not Detected (NotDetected); Influenza AH3,PCR Not Detected (NotDetected); Influenza B, PCR Not Detected (NotDetected); Mycoplasma Pneumoniae, PCR Not Detected (NotDetected); Parainfluenza 1, PCR Not Detected (NotDetected); Parainfluenza 2, PCR Not Detected (NotDetected); Parainfluenza 3, PCR Not Detected (NotDetected); Parainfluenza 4, PCR Not Detected (NotDetected); Respiratory Syncytial Virus Not Detected (NotDetected); Rhinovirus/Enterovirus Not Detected (NotDetected)
== END ==
LOC: LAB.DROPOF 23:40
PROVIDERS: PCP Student in an Organized Health Care Education/Training Program; Visit Provider Student in an Organized Health Care Education/Training Program
DX: R05.9 Cough, unspecified (principal); J02.9 Acute pharyngitis, unspecified; R06.09 Other forms of dyspnea; R09.89 Other specified symptoms and signs involving the circulatory and respiratory systems
CPT/HCPCS: 87581; 87632; 87635; 87798; C9803; U0003; U0005

== ENCOUNTER → 2022-08-26 10:58 | Outpatient (CLI) | payer OTHER, SELFPAY | PROVIDERS: PCP Physician Assistant; Visit Provider Physician Assistant | DX: R07.9 Chest pain, unspecified (principal) | CPT/HCPCS: 93270 ==

== ENCOUNTER → 2022-08-27 11:24 | Outpatient (CLI) | payer OTHER, SELFPAY ==
[2022-08-27 12:32] LABS: Basophils % 0.4 % (0.1-2.0); Eosinophils # 0.2 K/mm3 (0.0-0.4); Eosinophils % 1.8 % (0.1-12.0); Hematocrit 46.5 % (37.0-47.0); Hemoglobin 14.7 g/dL (12.2-16.2); Lymphocytes % 21.5 % (10-50); Mean Corpuscular HGB Conc 31.7 g/dL (31.8-35.4); Mean Corpuscular Hemoglobin 26.5 pg (27.0-31.2); Mean Corpuscular Volume 83.7 fl (81-99); Mean Platelet Volume 9.6 fl (7.4-10.4); Monocytes # 0.5 K/mm3 (0.1-1.0); Monocytes % 5.5 % (1.7-9.3); Neutrophils # 6.6 K/mm3 (1.8-7.8); Neutrophils % 70.8 % (37.0-80.0); Platelet Count 327 K/mm3 (142-424); Red Blood Count 5.56 M/mm3 (4.20-5.40); Red Cell Distribution Width 14.2 % (11.5-17.5); White Blood Count 9.3 K/mm3 (4.8-10.8)
[2022-08-27 12:46] LABS: Alanine Aminotransferase 28 U/L (12-78); Albumin Level 4.4 g/dl (3.5-5.0); Alkaline Phosphatase 51 U/L (38-126); Anion Gap 15.5 mEq/L (5-15); Aspartate Amino Transferase 53 U/L (14-36); Bilirubin,Indirect 0.4 mg/dL (0.0-0.9); Bilirubin,Total 0.4 mg/dl (0.2-1.3); Bilirubin,Unconjugated 0.5 mg/dL (0.0-1.1); Blood Urea Nitrogen 13 mg/dl (7-17); Calcium 9.3 mg/dl (8.4-10.2); Carbon Dioxide 28 mmol/L (22.0-30.0); Chloride 101 mmol/L (98-107); Chol/HDL Ratio 3.5 (1-3.5); Cholesterol 220 mg/dl (140-200); Estimated Glomerular Filt Rate 86 ml/min (>60); GFR (African American) 104 ML/MIN (>60); Glucose 89 mg/dl (74-100); HDL Cholesterol 63 mg/dl (40-60); Magnesium 1.9 mg/dl (1.6-2.3); Potassium 4.5 mmoL/L (3.5-5.1); Sodium 140 mmol/L (136-145); Total Protein,Serum 7.7 g/dl (6.3-8.2); Triglycerides 77 mg/dl (30-150); VLDL Cholesterol 15 mg/dL (0-40)
[2022-08-27 12:57] LABS: Direct LDL Cholesterol 108.73 mg/dL (100-129)
[2022-08-27 13:03] LABS: Free T4 (Free Thyroxine) 1.22 ng/dl (0.78-2.19)
[2022-08-27 13:17] LABS: Thyroid Stimulating Hormone 0.99 uIU/mL (0.465-4.68)
== END ==
PROVIDERS: PCP Physician Assistant; Visit Provider Physician Assistant
DX: R00.2 Palpitations (principal); R06.09 Other forms of dyspnea; R07.89 Other chest pain; R42 Dizziness and giddiness
CPT/HCPCS: 36415; 80048; 80061; 80076; 83036; 83735; 84439; 84443; 85025

== ENCOUNTER → 2022-09-07 06:42 | Outpatient (CLI) | payer BC, OTHER, SELFPAY ==
[2022-09-07 07:03] VITALS: BMI 33.8
[2022-09-07 07:13] VITALS: BP 110/66; PULSE 82; RESP 18; TEMP 36.3; O2SAT 97
[2022-09-07 07:52] LABS: HCG Qualitative, Serum Negative (Negative)
[2022-09-07 08:15] VITALS: PULSE 67; RESP 18; O2SAT 97
[2022-09-07 08:30] VITALS: BP 104/70; PULSE 73; RESP 18; O2SAT 99
[2022-09-07 08:37] VITALS: BP 90/54; PULSE 67; RESP 18; O2SAT 99
== END ==
PROVIDERS: PCP Physician Assistant; Visit Provider Physician Assistant
DX: R00.2 Palpitations (principal); R07.9 Chest pain, unspecified
CPT/HCPCS: 75574; 84703; Q9967

== ENCOUNTER → 2022-09-09 14:32 | Outpatient (CLI) | payer OTHER, SELFPAY | PROVIDERS: PCP Physician Assistant; Visit Provider Physician Assistant | DX: R01.1 Cardiac murmur, unspecified (principal) | CPT/HCPCS: 93306 ==

== ENCOUNTER 2022-09-30 15:57 | Emergency (ER) | payer BC, OTHER, SELFPAY ==
[2022-09-30 15:59] VITALS: BP 141/74; PULSE 92; RESP 18; TEMP 36.6; O2SAT 95; BMI 32.9
--- NOTE | 2022-09-30 16:20 | EXP.UTC ---
Discharge Plan Disposition Patient Disposition: Still a Patient Condition: Fair Prescriptions Prescriptions: No Action Vraylar 1.5 mg capsule 1.5 mg PO DAILY Patient Comments: TAKE 1 CAPSULE BY MOUTH ONCE DAILY ergocalciferol (vitamin D2) 1,250 mcg (50,000 unit) capsule 1,250 mcg PO WEEKLY cholecalciferol (vitamin D3) 25 mcg (1,000 unit) capsule 25 mcg PO DAILY fluticasone propion-salmeterol [Advair Diskus] 100-50 mcg/dose blister with device 1 inh inhalation BID albuterol sulfate [Proventil HFA] 90 mcg/actuation HFA aerosol inhaler 2 puff inhalation Q6H omeprazole 40 mg capsule,delayed release(DR/EC) 40 mg PO QDAY Rx Instructions: swallow whole; do not crush, chew, dissolve, or cut/break famotidine 20 mg tablet See Rx Instructions .ROUTE .COMPLEX Rx Instructions: Take 1 tablet by mouth once daily ciprofloxacin-dexamethasone [Ciprodex] 0.3-0.1 % drops,suspension 4 drp otic (ear) BID Nurtec ODT 75 mg tablet,disintegrating 75 mg PO Q OTHER DAY Referrals Follow up/Referrals: Miesha Schultz PA [Primary Care Provider] - See instructions Clinical Impressions Clinical Impression: Abdominal pain Discharge ED Provider: Carlos Zarate [facility] General Stated complaint: vomiting, excessive burping Mode of Arrival: Ambulatory Source of Information: Patient Limitations: No Limitations Time Seen by Provider: 09/30/22 16:20 Description of Symptoms (Recalled from Triage Doc. by RN): Patient reports having a lot of burning in her chest and stomach. States she has been burping for the past 5-6 days. HEENT Symptoms (Recalled from RN notes): No Resp Symptoms (Recalled from RN notes): No Skin Symptoms (Recalled from RN notes): No MS Symptoms (Recalled from RN notes): No Functional Status (Recalled from RN notes): wnl History of Present Illness Provider Complaint: She states that for the past 5 days she has had worsening acid reflux, abdominal pain, and chest burning (from acid reflux). She has been taking pepcid and omeprazole with no relief. Related Data Home Medications Medication Instructions Recorded Confirmed cariprazine 1.5 mg capsule 1.5 mg PO DAILY Anxiety 03/12/22 09/17/22 (Vraylar) cholecalciferol (vitamin D3) 25 25 mcg PO DAILY Supplement 03/12/22 09/17/22 mcg (1,000 unit) capsule ergocalciferol (vitamin D2) 1,250 1,250 mcg PO WEEKLY Supplement 03/12/22 09/17/22 mcg (50,000 unit) capsule fluticasone 100 mcg-salmeterol 50 1 inh inhalation BID Asthma 04/27/22 09/17/22 mcg/dose blistr powdr for inhalation (Advair Diskus) albuterol sulfate 90 mcg/actuation 2 puff inhalation Q6H Allergy 06/21/22 09/17/22 aerosol inhaler (Proventil HFA) symptoms ciprofloxacin 0.3 %-dexamethasone 4 drp otic (ear) BID . 09/07/22 09/17/22 0.1 % ear drops,suspension (Ciprodex) famotidine 20 mg tablet See Rx Instructions .Route 09/07/22 09/17/22 .COMPLEX . omeprazole 40 mg capsule,delayed 40 mg PO QDAY . 09/07/22 09/17/22 release rimegepant 75 mg disintegrating 75 mg PO Q OTHER DAY . 09/07/22 09/17/22 tablet (Nurtec ODT) Allergies Allergy/AdvReac Type Severity Reaction Status Date / Time ondansetron [From Zofran] Allergy Redness of Verified 09/07/22 07:06 Skin latex AdvReac Verified 09/07/22 07:06 Worker's Comp Is this a Worker's Comp case?: No [facility] Disclaimer: The information contained in this section may have been updated after the patient was seen, as this information can be updated by other users. Medical History Anxiety Asthma Cryptic tonsil Depression Deviated nasal septum Hypertrophy of nasal turbinates Left ear pain Otosclerosis Palpitations Skin tag Sleep apnea Tonsillectomy planned Surgical History Carpal tunnel syndrome History of placement of ear tubes Hx of cholecystectomy
[2022-09-30 17:01] VITALS: BP 123/68; PULSE 89; RESP 16; TEMP 36.6; O2SAT 99; BMI 33.1
[2022-09-30 17:30] VITALS: BP 109/61; PULSE 77; O2SAT 98
--- NOTE | 2022-09-30 17:50 | HMH.EDGENADL ---
Discharge Plan Disposition Patient Disposition: Home, Self-Care Condition: Good Prescriptions Prescriptions: New pantoprazole 40 mg tablet,delayed release (DR/EC) 40 mg PO DAILY Qty: 30 1RF sucralfate [Carafate] 100 mg/mL suspension 1 g PO TID 28 Days Qty: 840 0RF promethazine 25 mg tablet 25 mg PO TID PRN (Reason: nausea and vomiting) Qty: 20 0RF Discontinued omeprazole 40 mg capsule,delayed release(DR/EC) 40 mg PO QDAY Rx Instructions: swallow whole; do not crush, chew, dissolve, or cut/break No Action Vraylar 1.5 mg capsule 1.5 mg PO DAILY Patient Comments: TAKE 1 CAPSULE BY MOUTH ONCE DAILY ergocalciferol (vitamin D2) 1,250 mcg (50,000 unit) capsule 1,250 mcg PO WEEKLY cholecalciferol (vitamin D3) 25 mcg (1,000 unit) capsule 25 mcg PO DAILY fluticasone propion-salmeterol [Advair Diskus] 100-50 mcg/dose blister with device 1 inh inhalation BID albuterol sulfate [Proventil HFA] 90 mcg/actuation HFA aerosol inhaler 2 puff inhalation Q6H famotidine 20 mg tablet See Rx Instructions .ROUTE .COMPLEX Rx Instructions: Take 1 tablet by mouth once daily ciprofloxacin-dexamethasone [Ciprodex] 0.3-0.1 % drops,suspension 4 drp otic (ear) BID Nurtec ODT 75 mg tablet,disintegrating 75 mg PO Q OTHER DAY Referrals Follow up/Referrals: Miesha Schultz PA [Primary Care Provider] - See instructions Activity Restrictions/Add. Instructions Additional Instructions/Restrictions: You were evaluated in the emergency department today. Please bean picker your prescriptions at the pharmacy and take as prescribed. Stop taking your omeprazole. Follow-up outpatient with your primary care provider over the next 2 days. I also recommend following up with gastroenterology. You can call their office to see if they can work you in with a sooner appointment. Return to the emergency department for any new or worsening symptoms. Clinical Impressions Clinical Impression: GERD (gastroesophageal reflux disease) Qualifiers: Esophagitis presence: esophagitis presence not specified Qualified Code(s): K21.9 - Gastro-esophageal reflux disease without esophagitis Instructions Patient Instructions: DI for Gastroesophageal Reflux Disease (GERD) Discharge ED Provider: Valery Paiz General Adult HPI General Chief complaint: Recheck/Abnormal Lab/Rx Stated complaint: vomiting, excessive burping Time Seen by Provider: 09/30/22 16:20 Mode of Arrival: Ambulatory Source of Information: Patient Limitations: No Limitations Description of Symptoms (Recalled from ER Triage Doc. by RN): pt transfer from [facility] for excessive burping. History of Present Illness HPI narrative: This patient is a 26-year-old female with a history of cholecystectomy and acid reflux presented to the emergency department for evaluation with concern for burping, sensation of reflux going up into her mouth and throat, and bitter taste in her mouth. She states that this has been going on for 5 to 6 days. She takes omeprazole and Pepcid at home which have not been improving her symptoms as of late. She states that she is having difficulty sleeping as a result of it and also has had poor appetite. She denies any fevers, chills, vomiting, changes in bowel movements, or other concerns. She has a GI follow-up arranged for October but she states that she cannot make it until then. She was evaluated urgent treatment just prior to coming into the ED but declined antacids there as she wanted further work-up. Related Data Home Medications Medication Instructions Recorded Confirmed cariprazine 1.5 mg capsule 1.5 mg PO DAILY Anxiety 03/12/22 09/17/22 (Vraylar) cholecalciferol (vitamin D3) 25 25 mcg PO DAILY Supplement 03/12/22 09/17/22 mcg (1,000 unit) capsule ergocalciferol (vitamin D2) 1,250 1,250 mcg PO WEEKLY Supplement 03/12/22 09/17/22 mcg (50,000 unit) capsule fluticasone 100 mcg-salme
[2022-09-30 19:28] VITALS: BP 112/65; PULSE 71; RESP 18; TEMP 36.6
== END 2022-09-30 19:30 | disposition home or self-care (01) ==
LOC: UTC 16:40 → ER 16:50
PROVIDERS: Emergency Provider Emergency Medicine; PCP Physician Assistant
DX: R11.10 Vomiting, unspecified (principal); K21.9 Gastro-esophageal reflux disease without esophagitis; R14.2 Eructation; R63.0 Anorexia; F32.A Depression, unspecified; G47.30 Sleep apnea, unspecified; Z87.891 Personal history of nicotine dependence; F41.9 Anxiety disorder, unspecified; J45.909 Unspecified asthma, uncomplicated
CPT/HCPCS: 99283

== ENCOUNTER 2022-11-07 17:44 | Emergency (ER) | payer OTHER, SELFPAY ==
--- NOTE | 2022-11-07 18:00 | PC.NURSE ---
let pt know were full soon as a room opened up we would get her a bed
[2022-11-07 18:12] VITALS: BP 124/84; PULSE 99; RESP 16; TEMP 36.8; O2SAT 98; BMI 32.9
[2022-11-07 18:30] VITALS: BP 127/75; PULSE 106; O2SAT 97
--- NOTE | 2022-11-07 18:30 | PC.NURSE ---
pt moved to room 9
--- NOTE | 2022-11-07 18:38 | PC.NURSE ---
DR FORBES AT BEDSIDE
--- NOTE | 2022-11-07 18:40 | CT_ITS ---
PROCEDURE INFORMATION: Exam: CTA Chest With Contrast Exam date and time: 11/07/2022 8:14 PM Age: 27 years old Clinical indication: Pain; Chest pressure; Additional info: L chest pain, pleuritic, tachy TECHNIQUE: Imaging protocol: Computed tomographic angiography of the chest with contrast. Exam focused on the arteries. 3D rendering (Not supervised by radiologist): MIP and/or 3D reconstructed images were created by the technologist. Radiation optimization: All CT scans at this facility use at least one of these dose optimization techniques: automated exposure control; mA and/or kV adjustment per patient size (includes targeted exams where dose is matched to clinical indication); or iterative reconstruction. Contrast material: ISOVUE; Contrast volume: 70 ml; Contrast route: INTRAVENOUS (IV); REPORTING DATA: Count of CT and Cardiac NM exams in prior 12 months: This patient has received 2 known CTs and 0 known cardiac nuclear medicine studies in the 12 months prior to the current study. COMPARISON: CT ANGIO CHEST PE PROTOCOL 11/29/2021 2:34 PM FINDINGS: Pulmonary arteries: There is fair opacification of the pulmonary arterial tree, no central pulmonary arterial filling defect is seen. Aorta: Unremarkable. No aortic aneurysm. No aortic dissection. Lungs: Unremarkable. No consolidation. No masses. Pleural spaces: Unremarkable. No pneumothorax. No pleural effusion. Heart: Unremarkable. No cardiomegaly. No pericardial effusion. Lymph nodes: Unremarkable. No enlarged lymph nodes. Gallbladder and bile ducts: The patient is status post cholecystectomy. Intraperitoneal space: Please see the dedicated interpretation of abdomen and pelvis for findings in that region. Bones/joints: Unremarkable. No acute fracture. Soft tissues: Unremarkable. IMPRESSION: 1. There is fair opacification of the pulmonary arterial tree, no central pulmonary arterial filling defect is seen. 2. No dense parenchymal consolidation, pleural effusion, or pneumothorax.
--- NOTE | 2022-11-07 18:40 | CT_ITS ---
PROCEDURE INFORMATION: Exam: CT Abdomen And Pelvis With Contrast Exam date and time: 11/07/2022 8:14 PM Age: 27 years old Clinical indication: Abdominal pain; Additional info: L chest pain, pleuritic, tachy TECHNIQUE: Imaging protocol: Computed tomography of the abdomen and pelvis with contrast. Radiation optimization: All CT scans at this facility use at least one of these dose optimization techniques: automated exposure control; mA and/or kV adjustment per patient size (includes targeted exams where dose is matched to clinical indication); or iterative reconstruction. Contrast material: ISOVUE; Contrast volume: 70 ml; Contrast route: IV; REPORTING DATA: Count of CT and Cardiac NM exams in prior 12 months: This patient has received 2 known CTs and 0 known cardiac nuclear medicine studies in the 12 months prior to the current study. COMPARISON: CT ANGIO CHEST PE PROTOCOL 11/29/2021 2:34 PM FINDINGS: Liver: Normal. No mass. Gallbladder and bile ducts: The patient is status post cholecystectomy. Pancreas: Normal. No ductal dilation. Spleen: Normal. No splenomegaly. Adrenal glands: Normal. No mass. Kidneys and ureters: There is a simple appearing left lower pole renal cyst. Stomach and bowel: Unremarkable. No obstruction. No mucosal thickening. Appendix: No evidence of appendicitis. Intraperitoneal space: Unremarkable. No free air. No significant fluid collection. Vasculature: There is a low-density lesion between the right middle hepatic veins measuring 1.2 by 1.2 cm (image 61 series 2), stable from the November 2021 exam. This most likely reflects a hemangioma but further evaluation with nonemergent ultrasound can be considered.. Multiple pelvic phleboliths are present. Lymph nodes: Unremarkable. No enlarged lymph nodes. Urinary bladder: Unremarkable as visualized. Reproductive: Unremarkable as visualized. Bones/joints: Unremarkable. No acute fracture. Soft tissues: There is a small fat containing umbilical hernia. Other findings: Please see the dedicated interpretation of the thorax for findings in that region. IMPRESSION: 1. No acute pathology is identified in the abdomen or pelvis. 2. There is a low-density lesion between the right middle hepatic veins measuring 1.2 by 1.2 cm (image 61 series 2), stable from the November 2021 exam. This most likely reflects a hemangioma but further evaluation with nonemergent ultrasound can be considered.. COMMENTS: Consistent with the [employer]'s Incidental Findings Committee white paper (J Am Delores Radiol 2018): Any incidental renal lesion less than 1 cm or classified as too small to characterize, or any incidental cystic renal lesion characterized as simple-appearing, is likely benign. No follow-up imaging is recommended for these lesions per consensus recommendations based on imaging criteria.
--- NOTE | 2022-11-07 18:43 | PC.NURSE ---
pt received a warm blanket nothing else needed,call light at bs
[2022-11-07 19:31] VITALS: BP 98/49; PULSE 95; O2SAT 98
[2022-11-07 19:46] LABS: Alanine Aminotransferase 24 U/L (12-78); Albumin Level 4.1 g/dl (3.5-5.0); Albumin/Globulin Ratio 1.1 (1.1-1.8); Alkaline Phosphatase 50 U/L (38-126); Anion Gap 15.4 mEq/L (5-15); Aspartate Amino Transferase 42 U/L (14-36); Bilirubin,Total 0.4 mg/dl (0.2-1.3); Blood Urea Nitrogen 15 mg/dl (7-17); Calcium 9.3 mg/dl (8.4-10.2); Carbon Dioxide 24 mmol/L (22.0-30.0); Chloride 103 mmol/L (98-107); Creatinine Clearance Estimated 154 mL/min (50-200); Estimated Glomerular Filt Rate 100 ml/min (>60); GFR (African American) 121 ML/MIN (>60); Globulin 3.8 g/dL (1.3-3.2); Glucose 92 mg/dl (74-100); Potassium 3.4 mmoL/L (3.5-5.1); Sodium 139 mmol/L (136-145); Total Protein,Serum 7.9 g/dl (6.3-8.2)
[2022-11-07 19:49] LABS: HCG Qualitative, Serum Negative (Negative)
[2022-11-07 20:01] VITALS: BP 92/59; PULSE 101; O2SAT 98
--- NOTE | 2022-11-07 20:03 | HMH.EDGENADL ---
Discharge Plan Disposition Patient Disposition: Home, Self-Care Condition: Good Prescriptions Prescriptions: New naproxen 500 mg tablet 500 mg PO BID PRN (Reason: pain) Qty: 20 0RF amoxicillin-pot clavulanate 875-125 mg tablet 1 tab PO Q12H Qty: 20 0RF No Action colestipol [Colestid] 1 gram tablet 1 g PO BID Qty: 120 4RF albuterol sulfate 90 mcg/actuation HFA aerosol inhaler See Rx Instructions .ROUTE .COMPLEX Qty: 7 0RF Dose Instruction: INHALE 2 PUFFS BY MOUTH EVERY 6 HOURS Rx Instructions: INHALE 2 PUFFS BY MOUTH EVERY 6 HOURS Vraylar 1.5 mg capsule 1.5 mg PO DAILY Patient Comments: TAKE 1 CAPSULE BY MOUTH ONCE DAILY ergocalciferol (vitamin D2) 1,250 mcg (50,000 unit) capsule 1,250 mcg PO WEEKLY cholecalciferol (vitamin D3) 25 mcg (1,000 unit) capsule 25 mcg PO DAILY fluticasone propion-salmeterol [Advair Diskus] 100-50 mcg/dose blister with device 1 inh inhalation BID famotidine 20 mg tablet See Rx Instructions .ROUTE .COMPLEX Rx Instructions: Take 1 tablet by mouth once daily Nurtec ODT 75 mg tablet,disintegrating 75 mg PO Q OTHER DAY pantoprazole 40 mg tablet,delayed release (DR/EC) 40 mg PO DAILY Qty: 30 1RF sucralfate [Carafate] 100 mg/mL suspension 1 g PO TID 28 Days Qty: 840 0RF promethazine 25 mg tablet 25 mg PO TID PRN (Reason: nausea and vomiting) Qty: 20 0RF Referrals Follow up/Referrals: Miesha Schultz PA [Primary Care Provider] - See instructions Activity Restrictions/Add. Instructions Additional Instructions/Restrictions: You were evaluated in the emergency department today. Please leaf size picker your prescription and take as prescribed. Follow-up with your primary care provider over the next 3 days. Return to the emergency department for any new or worsening symptoms. Clinical Impressions Clinical Impression: Rib pain on left side, Pleuritis, Hemangioma of liver, Acute hypokalemia Instructions Patient Instructions: DI for Pleurisy, DI for Acute Pain -- Adult Discharge ED Provider: Valery Paiz General Adult HPI General Chief complaint: PAIN Stated complaint: left back pain, hurts when breathing Time Seen by Provider: 11/07/22 18:13 Mode of Arrival: Ambulatory Limitations: No Limitations Description of Symptoms (Recalled from ER Triage Doc. by RN): PT C/O LEFT SIDED RIB PAIN THAT RADIATES TO BACK, PAIN WORSE WITH DEEP BREATHING THAT BEGAN THIS AM History of Present Illness HPI narrative: This patient is a 27-year-old female with a history of PTSD, bipolar disorder, narcolepsy, GERD, palpitations, and asthma presenting to the emergency department for evaluation with concern for left-sided rib pain that radiates to her back and is worse with breathing. She states that she feels like she cannot get a deep breath. It started when she woke up this morning. Of note, she is currently in a left lower extremity boot for an injury to her left foot. She denies any fevers, chills, cough, congestion, abdominal pain, nausea, vomiting, changes bowel movements, rashes, or swelling. She denies any history of blood clots or clotting disorders. She does admit to use of steroids recently. Related Data Home Medications Medication Instructions Recorded Confirmed cariprazine 1.5 mg capsule 1.5 mg PO DAILY Anxiety 03/12/22 10/01/22 (Vraylar) cholecalciferol (vitamin D3) 25 25 mcg PO DAILY Supplement 03/12/22 10/01/22 mcg (1,000 unit) capsule ergocalciferol (vitamin D2) 1,250 1,250 mcg PO WEEKLY Supplement 03/12/22 10/01/22 mcg (50,000 unit) capsule fluticasone 100 mcg-salmeterol 50 1 inh inhalation BID Asthma 04/27/22 10/01/22 mcg/dose blistr powdr for inhalation (Advair Diskus) famotidine 20 mg tablet See Rx Instructions .Route 09/07/22 10/01/22 .COMPLEX . rimegepant 75 mg disintegrating 75 mg PO Q OTHER DAY . 09/07/22 10/01/22 tablet (Nurtec ODT) Previous Rx's Medication
[2022-11-07 20:09] LABS: Microscopic, Urine URINE MICROSCOPIC (MICROSCOPIC)
[2022-11-07 20:13] LABS: Troponin I < 0.01 ng/ml (0.00-0.034)
[2022-11-07 20:20] LABS: Appearance,Urine CLEAR (Clear); Bilirubin,Urine Negative (Negative); Blood, Urine 1+ (Negative); Color,Urine YELLOW (Yellow); Glucose,Urine (UA) Negative (Negative); Ketones,Urine Negative (Negative); Leukocyte Esterase,Urine Negative (Negative); Nitrate,Urine Negative (Negative); Protein,Urine Negative (Negative); Specific Gravity, Urine 1.015 (1.005-1.030); Urobilinogen,Urine 0.2 EU/dl (0.2)
[2022-11-07 20:21] LABS: Basophils # 0.1 K/mm3 (0-0.2); Basophils % 0.4 % (0.1-2.0); Eosinophils # 0.3 K/mm3 (0.0-0.4); Eosinophils % 1.8 % (0.1-12.0); Hematocrit 43.2 % (37.0-47.0); Lymphocytes # 2.7 K/mm3 (0.7-4.5); Lymphocytes % 17.8 % (10-50); Mean Corpuscular HGB Conc 32.4 g/dL (31.8-35.4); Mean Corpuscular Hemoglobin 26.2 pg (27.0-31.2); Mean Corpuscular Volume 80.9 fl (81-99); Mean Platelet Volume 9.1 fl (7.4-10.4); Monocytes # 0.7 K/mm3 (0.1-1.0); Monocytes % 4.9 % (1.7-9.3); Neutrophils # 11.4 K/mm3 (1.8-7.8); Neutrophils % 75.1 % (37.0-80.0); Platelet Count 331 K/mm3 (142-424); Red Blood Count 5.35 M/mm3 (4.20-5.40)
[2022-11-07 20:23] LABS: White Blood Count 15.2 K/mm3 (4.8-10.8)
[2022-11-07 20:25] LABS: MANUAL DIFFERENTIAL MANUAL DIFFERENTIAL (MANUAL DIFF)
[2022-11-07 20:50] LABS: RBC,Urine Occasional #/hpf (0-3); Squamous Epithelial Cell,Urine Occasional #/hpf (0-5); WBC,Urine Occasional #/hpf (0-3)
[2022-11-07 20:55] LABS: Lymphocytes % 34 % (10-50); Monocytes % 3 % (2-9); Neutrophils % 63 % (42-76); Platelet Estimate Normal; RBC Morphology Normal; Total Cells Counted 100
[2022-11-07 21:57] VITALS: BP 113/68; PULSE 77; RESP 18; TEMP 36.9
== END 2022-11-07 21:58 | disposition home or self-care (01) ==
PROVIDERS: Emergency Provider Emergency Medicine; PCP Physician Assistant
DX: R07.81 Pleurodynia (principal); E87.6 Hypokalemia; D18.03 Hemangioma of intra-abdominal structures; F41.9 Anxiety disorder, unspecified; J45.909 Unspecified asthma, uncomplicated; F32.A Depression, unspecified; G47.30 Sleep apnea, unspecified; R00.0 Tachycardia, unspecified
CPT/HCPCS: 71275; 74177; 80053; 81001; 84484; 84703; 85007; 85025; 96361; 96374; 96375; 99285; J0131; Q9967

== ENCOUNTER → 2022-11-11 14:05 | Outpatient (CLI) | payer BC, OTHER, SELFPAY ==
[2022-11-11 15:06] LABS: Basophils % 0.3 % (0.1-2.0); Eosinophils # 0.2 K/mm3 (0.0-0.4); Eosinophils % 1.7 % (0.1-12.0); Hematocrit 44.7 % (37.0-47.0); Hemoglobin 14.5 g/dL (12.2-16.2); Lymphocytes # 1.8 K/mm3 (0.7-4.5); Mean Corpuscular HGB Conc 32.4 g/dL (31.8-35.4); Mean Corpuscular Hemoglobin 26.6 pg (27.0-31.2); Mean Platelet Volume 9.3 fl (7.4-10.4); Monocytes # 0.5 K/mm3 (0.1-1.0); Monocytes % 4.5 % (1.7-9.3); Neutrophils # 7.6 K/mm3 (1.8-7.8); Neutrophils % 75.6 % (37.0-80.0); Platelet Count 326 K/mm3 (142-424); Red Blood Count 5.45 M/mm3 (4.20-5.40); Red Cell Distribution Width 15.1 % (11.5-17.5)
[2022-11-11 15:50] LABS: Alanine Aminotransferase 21 U/L (12-78); Albumin Level 4.3 g/dl (3.5-5.0); Albumin/Globulin Ratio 1.3 (1.1-1.8); Alkaline Phosphatase 47 U/L (38-126); Aspartate Amino Transferase 36 U/L (14-36); Bilirubin,Total 0.2 mg/dl (0.2-1.3); Blood Urea Nitrogen 12 mg/dl (7-17); Calcium 9.5 mg/dl (8.4-10.2); Carbon Dioxide 25 mmol/L (22.0-30.0); Chloride 105 mmol/L (98-107); Chol/HDL Ratio 4.2 (1-3.5); Cholesterol 185 mg/dl (140-200); Estimated Glomerular Filt Rate 85 ml/min (>60); GFR (African American) 103 ML/MIN (>60); Globulin 3.3 g/dL (1.3-3.2); Glucose 97 mg/dl (74-100); HDL Cholesterol 44 mg/dl (40-60); Potassium 3.9 mmoL/L (3.5-5.1); Total Protein,Serum 7.6 g/dl (6.3-8.2); Triglycerides 179 mg/dl (30-150); VLDL Cholesterol 36 mg/dL (0-40)
[2022-11-11 16:07] LABS: Direct LDL Cholesterol 100.76 mg/dL (100-129)
[2022-11-11 17:00] LABS: Anion Gap 15.9 mEq/L (5-15); Sodium 142 mmol/L (136-145)
[2022-11-11 18:27] LABS: Thyroid Stimulating Hormone 2.07 uIU/mL (0.465-4.68)
[2022-11-11 18:46] LABS: Vitamin B12 597 pg/mL (239-931)
== END ==
PROVIDERS: PCP Physician Assistant; Visit Provider Physician Assistant
DX: R63.5 Abnormal weight gain (principal); E55.9 Vitamin D deficiency, unspecified; Z79.899 Other long term (current) drug therapy
CPT/HCPCS: 36415; 80053; 80061; 82306; 82607; 84443; 85025

== ENCOUNTER 2022-12-14 10:33 | Emergency (ER) | payer OTHER, SELFPAY ==
[2022-12-14 10:34] VITALS: BP 96/66; PULSE 88; RESP 18; TEMP 36.7; O2SAT 97; BMI 38.5
--- NOTE | 2022-12-14 10:49 | XR_ITS ---
FINAL REPORT CLINICAL HISTORY: fall x few weeks ago FINDINGS: LEFT HAND: 3 views of the left hand were obtained. There is no acute fracture or dislocation. Visualized joint spaces are normally aligned. Soft tissues are unremarkable. IMPRESSION: No acute bony abnormality. Reviewed, Interpreted and Dictated by Pelon Fuentes III, MD Transcribed by Danika Kang Authenticated and [facility]
--- NOTE | 2022-12-14 10:49 | XR_ITS ---
FINAL REPORT CLINICAL HISTORY: fall x few weeks ago FINDINGS: LEFT WRIST Three views demonstrate no acute fracture or dislocation. The visualized joint spaces are normally aligned. The soft tissues are unremarkable. IMPRESSION: No acute bony abnormality. Reviewed, Interpreted and Dictated by Pelon Fuentes III, MD Transcribed by Danika Kang Authenticated and [facility]
--- NOTE | 2022-12-14 10:49 | XR_ITS ---
FINAL REPORT CLINICAL HISTORY: fall x few weeks ago FINDINGS: LEFT FOREARM 2 views of the left forearm were obtained. There is no acute fracture or dislocation. The joints are intact. There are no soft tissue abnormalities. IMPRESSION: No acute process. Reviewed, Interpreted and Dictated by Pelon Fuentes III, MD Transcribed by Danika Kang Authenticated and [facility]
--- NOTE | 2022-12-14 11:00 | EXP.UTC ---
Discharge Plan Disposition Patient Disposition: Home, Self-Care Condition: Good Prescriptions Prescriptions: New ibuprofen [IBU] 800 mg tablet 800 mg PO Q8HP PRN (Reason: Moderate Pain) Qty: 30 0RF No Action Vraylar 1.5 mg capsule 1.5 mg PO DAILY Qty: 90 3RF ergocalciferol (vitamin D2) 1,250 mcg (50,000 unit) capsule 1,250 mcg PO WEEKLY cholecalciferol (vitamin D3) 25 mcg (1,000 unit) capsule 25 mcg PO DAILY fluticasone propion-salmeterol [Advair Diskus] 100-50 mcg/dose blister with device 1 inh inhalation BID sucralfate [Carafate] 100 mg/mL suspension 1 g PO TID famotidine 20 mg tablet 20 mg PO DAILY Rx Instructions: Take 1 tablet by mouth once daily pantoprazole 40 mg tablet,delayed release (DR/EC) 40 mg PO DAILY albuterol sulfate 90 mcg/actuation HFA aerosol inhaler 90 mcg inhalation NEEDED PRN (Reason: Breathing Problems) Rx Instructions: INHALE 2 PUFFS BY MOUTH EVERY 6 HOURS amoxicillin-pot clavulanate 875-125 mg tablet 1 tab PO Q12H Nurtec ODT 75 mg tablet,disintegrating 75 mg PO Q OTHER DAY naproxen 500 mg tablet 500 mg PO BID PRN (Reason: pain) Qty: 20 0RF Referrals Follow up/Referrals: Miesha Schultz PA [Primary Care Provider] - See instructions Juan José Kellogg DO [Staff Physician] - See instructions Activity Restrictions/Add. Instructions Additional Instructions/Restrictions: Rest the extremity, Wear the rashid wrap for compression, Elevate the extremity as tolerated while you are resting. Take ibuprofen for pain. I sent in a prescription to your pharmacy. Follow up with Dr. Kellogg (orthopedics). I put in a referral but you need to call his office and schedule an appointment. Follow up with your regular doctor. GO TO THE ER FOR ANY WORSENING SYMPTOMS Clinical Impressions Clinical Impression: Sprain of left hand, Sprain of left wrist Stand Alone Forms Stand Alone Forms: Work/School Release Instructions Patient Instructions: Wrist Sprain, DI for Wrist Sprain, DI for Hand Injury, How to Apply an Elastic Wrap on Wrist Discharge ED Provider: Carlos Zarate [facility] HPI General Stated complaint: AO9/11@home, pain in Lt wrist Time Seen by Provider: 12/14/22 10:59 Related Data Home Medications Medication Instructions Recorded Confirmed cholecalciferol (vitamin D3) 25 25 mcg PO DAILY Supplement 03/12/22 12/04/22 mcg (1,000 unit) capsule ergocalciferol (vitamin D2) 1,250 1,250 mcg PO WEEKLY Supplement 03/12/22 12/04/22 mcg (50,000 unit) capsule fluticasone 100 mcg-salmeterol 50 1 inh inhalation BID Asthma 04/27/22 12/04/22 mcg/dose blistr powdr for inhalation (Advair Diskus) albuterol sulfate 90 mcg/actuation 90 mcg inhalation NEEDED PRN 12/04/22 12/04/22 aerosol inhaler Breathing Problems amoxicillin 875 mg-potassium 1 tab PO Q12H infectrion 12/04/22 12/04/22 clavulanate 125 mg tablet famotidine 20 mg tablet 20 mg PO DAILY reflux 12/04/22 12/04/22 pantoprazole 40 mg tablet,delayed 40 mg PO DAILY reflux 12/04/22 12/04/22 release rimegepant 75 mg disintegrating 75 mg PO Q OTHER DAY migraines 12/04/22 12/04/22 tablet (Nurtec ODT) sucralfate 100 mg/mL oral 1 g PO TID stomach 12/04/22 12/04/22 suspension (Carafate) Previous Rx's Medication Instructions Recorded naproxen 500 mg tablet 500 mg PO BID PRN pain #20 tabs 11/07/22 cariprazine 1.5 mg capsule 1.5 mg PO DAILY Anxiety #90 caps 11/11/22 (Vraylar) ibuprofen 800 mg tablet (IBU) 800 mg PO Q8HP PRN Moderate Pain 12/14/22 #30 tabs Allergies Allergy/AdvReac Type Severity Reaction Status Date / Time ondansetron [From Zofran] Allergy Redness of Verified 12/14/22 11:04 Skin latex AdvReac Verified 12/14/22 11:04 [facility] Disclaimer: The information contained in this section may have been updated after the patient was seen, as this information can be updated by other users. Medical His
[2022-12-14 11:32] VITALS: BP 96/66; PULSE 88; RESP 18; TEMP 36.7; O2SAT 97
== END 2022-12-14 11:32 | disposition home or self-care (01) ==
PROVIDERS: Emergency Provider Nurse Practitioner Family; PCP Physician Assistant
DX: S63.92XA Sprain of unspecified part of left wrist and hand, initial encounter (principal); J45.909 Unspecified asthma, uncomplicated; G47.30 Sleep apnea, unspecified; F41.9 Anxiety disorder, unspecified; F32.A Depression, unspecified; W19.XXXA Unspecified fall, initial encounter
CPT/HCPCS: 73090; 73110; 73130; 99212; 99214; G0463

== ENCOUNTER 2022-12-15 15:00 | Outpatient (RCR) | payer OTHER, SELFPAY | END 2022-12-15 16:00 | disposition home or self-care (01) | LOC: PT 15:00 | PROVIDERS: PCP Physician Assistant; Visit Provider Physician Assistant | DX: M25.572 Pain in left ankle and joints of left foot (principal); M24.272 Disorder of ligament, left ankle | CPT/HCPCS: 97010; 97014; 97110; 97140; 97163; 97164; 97530; G0283 ==

== ENCOUNTER 2022-12-17 10:36 | Day surgery (SDC) | payer BC, OTHER, SELFPAY ==
[2022-12-04 12:46] VITALS: BMI 39.1
[2022-12-17] VITALS (8 sets, daily range): BP systolic 86–125; BP diastolic 56–78; PULSE 65–88; RESP 16–18; TEMP 36.1–36.2; O2SAT 96–99
--- NOTE | 2022-12-17 11:06 | P.PNANES_ITS ---
[facility] Disclaimer: The information contained in this section may have been updated after the patient was seen, as this information can be updated by other users. Medical History Anxiety Asthma Cryptic tonsil Depression Deviated nasal septum Hypertrophy of nasal turbinates Left ear pain Otosclerosis Palpitations Skin tag SKIN TAG REMOVED Sleep apnea Tonsillectomy planned Surgical History Carpal tunnel syndrome History of placement of ear tubes Hx of cholecystectomy Family History Grandmother Hypertension Stroke Grandfather Heart attack Hypertension Father Hypertension Crohn disease Other Asthma Social History Smoking Status: Former smoker alcohol intake: current substance use type: marijuana current occupational status: employed Travel in the last 8 weeks: None [facility] Anesthesia Checklist Patient Identification Patient Identification: Arm Band and Verbal (Name & ) Structural Data Admitted From: Home Planned Operative Procedure/s: EGD/Colonoscopy Consent for Planned Operative Procedure(s) Verified: Yes Verified Documents: Surgical Consent and History and Physical NPO Status Verified Time NPO: 00:00 Chart Verification Results Verified: HCG Additional verifications Patient : No Anesthesia Reactions: No Hx Blood Transfusions: Yes Blood Transfusion Reaction: No Cephalosporin Allergy: No Previous Colonoscopy: No Cardiovascular Assessment Heart Sounds: S1 & S2 Pulse Rhythm: Irregular Peripheral Edema: No Airway Assessment Mallampati Score:: Class II C-Spine Mobility Assessed: Yes TMJ Mobility Assessed: Yes Dentition: Poor Dentition (Severely carried. Nothing loose per pt.) Neurological Assessment Level of Consciousness: Awake, Alert and Appropriate Hx Seizures: No Numbness or tingling in extremities: No Anesthesia Plan Anesthesia Risk discussed: Yes Anesthesia Plan: Verified ASA Class: III Anesthesia Type: MAC
[2022-12-17 11:23] LABS: Urine Pregnancy, HCG Qual. Negative (Negative)
--- NOTE | 2022-12-17 11:53 | [facility].SCOPE ---
Procedure: Date: 12/17/22 Patient Date of :: 1995 Procedure Performed:: EGD/biopsies/dilation Indications:: Dysphagia, abdominal pain Performing Provider:: Madhavi Livingston MD Referring Provider:: Gabriella Livingston APRN Sedation:: Propofol Procedure:: The gastroscope was gently passed through the incisoral orifice into the oral cavity and under direct visualization the esophagus was intubated. The endoscope was passed down the esophagus, through the stomach, and into the duodenum. Color, texture, mucosa, and anatomy of the esophagus, stomach, and duodenum were carefully examined with the scope. Findings:: Oropharynx: normal Esophagus: normal, empiric bougie dilation performed with 56F dilator EG Junction: intact at 40 cm Cardia: normal Fundus: normal Body: normal, biopsies obtained for evaluation of h.pylori Antrum: normal Duodenal bulb: normal Duodenum (second and third portion): normal Impression: Symptomatic dysphagia treated with bougie dilation, otherwise normal EGD Specimens:: Gastric Recommendations:: Symptomatic therapy as indicated for abdominal migraine may be beneficial Complications:: None Estimated blood obtained (mL): 0 Colonoscopy Component Colonoscopy Component Was a colonoscopy performed during today's procedure?: No
== END 2022-12-17 12:51 | disposition home or self-care (01) ==
PROVIDERS: PCP Physician Assistant; Visit Provider Internal Medicine Gastroenterology
PROC: 0DJ08ZZ Inspection of Upper Intestinal Tract, Via Natural or Artificial Opening Endoscopic (ICD-10-PCS; CPT 43235; principal; 2022-12-17 11:30)
DX: G43.D0 Abdominal migraine, not intractable (principal); R13.10 Dysphagia, unspecified; K29.50 Unspecified chronic gastritis without bleeding
CPT/HCPCS: 43248; 43239; 81025

== ENCOUNTER → 2023-03-11 13:27 | Outpatient (CLI) | payer BC, OTHER, SELFPAY ==
[2023-03-17 13:09] LABS: Pancreatic Elastase, Fecal 469 (>200)
[2023-03-18 23:40] LABS: Calprotectin, Fecal 49 ug/g (0-120)
== END ==
PROVIDERS: PCP Physician Assistant; Visit Provider Nurse Practitioner
DX: G43.D0 Abdominal migraine, not intractable (principal); R19.5 Other fecal abnormalities; Z83.79 Family history of other diseases of the digestive system; R19.7 Diarrhea, unspecified; R10.10 Upper abdominal pain, unspecified
CPT/HCPCS: 82656; 83993

== ENCOUNTER 2023-03-14 19:16 | Emergency (ER) | payer BC, OTHER, SELFPAY ==
[2023-03-14 19:17] VITALS: BP 126/69; PULSE 104; RESP 18; TEMP 36.7; O2SAT 96; BMI 39.1
--- NOTE | 2023-03-14 19:25 | EXP.UTC ---
Discharge Plan Disposition Patient Disposition: Still a Patient Condition: Fair Prescriptions Prescriptions: No Action amitriptyline 50 mg tablet 50 mg PO HS Qty: 30 2RF dicyclomine 20 mg tablet 20 mg PO TID PRN (Reason: abdominal pain) Qty: 90 1RF Vraylar 1.5 mg capsule 1.5 mg PO DAILY Qty: 90 3RF cholecalciferol (vitamin D3) 25 mcg (1,000 unit) capsule 25 mcg PO DAILY Qty: 90 3RF ergocalciferol (vitamin D2) 1,250 mcg (50,000 unit) capsule 1,250 mcg PO WEEKLY Qty: 14 3RF famotidine 20 mg tablet 20 mg PO DAILY Qty: 90 3RF Rx Instructions: Take 1 tablet by mouth once daily fluticasone propion-salmeterol [Advair Diskus] 100-50 mcg/dose blister with device 1 inh inhalation BID Qty: 60 5RF pantoprazole 40 mg tablet,delayed release (DR/EC) 40 mg PO DAILY Qty: 90 3RF ropinirole 0.5 mg tablet 0.5 mg PO DAILY Qty: 30 2RF Nurtec ODT 75 mg tablet,disintegrating 75 mg PO Q OTHER DAY Qty: 16 2RF prednisone 20 mg tablet 20 mg PO BID 5 Days Qty: 10 0RF lisdexamfetamine [Vyvanse] 20 mg capsule 20 mg PO DAILY Qty: 30 0RF ibuprofen [IBU] 800 mg tablet 800 mg PO Q8HP PRN (Reason: Moderate Pain) Qty: 30 0RF sucralfate [Carafate] 100 mg/mL suspension 1 g PO TID albuterol sulfate 90 mcg/actuation HFA aerosol inhaler 90 mcg inhalation NEEDED PRN (Reason: Breathing Problems) Rx Instructions: INHALE 2 PUFFS BY MOUTH EVERY 6 HOURS Referrals Follow up/Referrals: Miesha Schultz PA [Primary Care Provider] - See instructions Clinical Impressions Clinical Impression: Abdominal pain Discharge ED Provider: Carlos Zarate [facility] General Stated complaint: abd pain Time Seen by Provider: 03/14/23 19:24 History of Present Illness Provider Complaint: She states that she has progressively worsening right lower quadrant abdominal pain that began yesterday. She denies any urinary complaints. She has had nausea but she has not vomited. She has not had an appetite since before her pain started. She denies diarrhea/constipation. She rates her pain as a 12/22. Related Data Home Medications Medication Instructions Recorded Confirmed albuterol sulfate 90 mcg/actuation 90 mcg inhalation NEEDED PRN 12/04/22 02/24/23 aerosol inhaler Breathing Problems sucralfate 100 mg/mL oral 1 g PO TID stomach 12/04/22 02/24/23 suspension (Carafate) Previous Rx's Medication Instructions Recorded ibuprofen 800 mg tablet (IBU) 800 mg PO Q8HP PRN Moderate Pain 12/14/22 #30 tabs cariprazine 1.5 mg capsule 1.5 mg PO DAILY Anxiety #90 caps 01/14/23 (Vraylar) cholecalciferol (vitamin D3) 25 25 mcg PO DAILY Supplement #90 caps 01/14/23 mcg (1,000 unit) capsule ergocalciferol (vitamin D2) 1,250 1,250 mcg PO WEEKLY Supplement #14 01/14/23 mcg (50,000 unit) capsule caps famotidine 20 mg tablet 20 mg PO DAILY reflux #90 tabs 01/14/23 fluticasone 100 mcg-salmeterol 50 1 inh inhalation BID Asthma #60 ea 01/14/23 mcg/dose blistr powdr for inhalation (Advair Diskus) pantoprazole 40 mg tablet,delayed 40 mg PO DAILY reflux #90 tabs 01/14/23 release rimegepant 75 mg disintegrating 75 mg PO Q OTHER DAY migraines #16 01/14/23 tablet (Nurtec ODT) tabs ropinirole 0.5 mg tablet 0.5 mg PO DAILY #30 tabs 01/14/23 amitriptyline 50 mg tablet 50 mg PO HS #30 tabs 02/11/23 dicyclomine 20 mg tablet 20 mg PO TID PRN abdominal pain 02/11/23 #90 tabs prednisone 20 mg tablet 20 mg PO BID 5 days #10 tabs 02/24/23 lisdexamfetamine 20 mg capsule 20 mg PO DAILY #30 caps 03/05/23 (Vyvanse) Allergies Allergy/AdvReac Type Severity Reaction Status Date / Time ondansetron [From Zofran] Allergy Redness of Verified 03/14/23 20:04 Skin latex AdvReac Verified 03/14/23 20:04 PFSH PFSH Disclaimer: The information contained in this section may have been updated after the patient was seen, as this information can be updated by other users. Medical History (Updated 03/14/23 @ 20:00 by Carlos Zarate APRN) Abdominal pain Anxiety Apneic episode Asthma Buttocks nodule Cryptic tonsil Depression Deviated nasal septum Dysphagia Frequent loose stools Hemangioma of liver Hypertrophy of nasal turbinates Left ear pain Otosclerosis Palpitations Skin tag Sleep apnea Snoring Tonsillectomy planned Surgical History Carpal tunnel syndrome History of placement of ear tubes Hx of cholecystectomy Family History Grandmother Hypertension Stroke Grandfather Heart attack Hypertension Father Hypertension Crohn disease Other Asthma Social History Smoking Status: Former smoker alcohol intake: current substance use type: marijuana current occupational status: employed Travel in the last 8 weeks: None ROS Obtained: Yes All systems reviewed & no additional complaints except as documented Constitutional Constitutional: Denies chills, Denies fever(s) and Reports poor appetite ENT Ears, Nose, Mouth, and Throat: Denies dizziness and Denies sore throat Cardiovascular Cardiovascular: Denies dyspnea Respiratory Respiratory: Denies chest congestion, Denies cough and Denies dyspnea Gastrointestinal Gastrointestingal: Reports abdominal pain and nausea; Denies constipation, cramping, diarrhea or vomiting Genitourinary Female Genitourinary: Denies difficulty voiding, Denies dysuria, Denies hematuria, Denies urinary frequency, Denies urinary incontinence, Denies urinary hesitancy and Denies urinary urgency Musculoskeletal Musculoskeletal: Denies arthralgias Integumentary/Breasts Skin/Breast: Denies rash Neurologic Neurologic: Denies dizziness Physical Exam General General appearance: alert and in no apparent distress Head Head exam: atraumatic and normocephalic Eye Eye exam: Present normal appearance, PERRL and EOMI ENT ENT exam: Present normal exam, normal oropharynx, mucous membranes moist, TM's normal bilaterally and normal external ear exam Neck Neck exam: Present normal inspection, full ROM and trachea midline; Absent tenderness, meningismus or lymphadenopathy Chest Chest inspection: Present normal inspection and symmetric chest wall rise; Absent tenderness, rash or abscess Respiratory Respiratory exam: Present normal lung sounds bilaterally; Absent respiratory distress, wheezes or stridor Cardiovascular Cardiovascular exam: Present regular rate and normal rhythm; Absent irregular rhythm, systolic murmur, diastolic murmur or JVD Abdominal Exam Abdominal exam: Present soft, normal bowel sounds, psoas sign, obturator sign, heel tap sign, Rovsing's sign and tenderness at McBurney's Point; Absent distention, tenderness, guarding, rebound, rigidity or Tijerina's sign Extremities Exam Extremities exam: Present normal inspection and full ROM; Absent tenderness Back Exam Back exam: Present normal inspection and full ROM; Absent tenderness, CVA tenderness (R) or CVA tenderness (L) Neurological Exam Neurological exam: Present alert, oriented X3 and CN II-XII intact Psychiatric Psychiatric exam: Present normal affect and normal mood Skin Skin exam: Present warm, dry, intact and normal color Lymphatic Lymphatic Findings: no adenopathy Medical Decision Making Medical Records Medical records reviewed: No I reviewed the patient's medical records. Leo Inquiry Pt receiving controlled substance: No Medical Decision Narrative: She was transferred to the ER due to the severity of her abdominal pain with no clear etiology.
[2023-03-14 20:06] LABS: Urine Pregnancy, HCG Qual. Negative (Negative)
[2023-03-14 20:12] VITALS: BP 142/79; PULSE 73; RESP 19; TEMP 36.8; O2SAT 98; BMI 39.1
--- NOTE | 2023-03-14 20:23 | CT_ITS ---
PROCEDURE INFORMATION: Exam: CT Abdomen And Pelvis With Contrast Exam date and time: 03/14/2023 8:40 PM Age: 27 years old Clinical indication: Abdominal pain; Periumbilical; Additional info: Rlq, periumbilical abd pain TECHNIQUE: Imaging protocol: Computed tomography of the abdomen and pelvis with contrast. Radiation optimization: All CT scans at this facility use at least one of these dose optimization techniques: automated exposure control; mA and/or kV adjustment per patient size (includes targeted exams where dose is matched to clinical indication); or iterative reconstruction. Contrast material: ISOVUE; Contrast volume: 75 ml; Contrast route: IV; REPORTING DATA: Count of CT and Cardiac NM exams in prior 12 months: This patient has received 3 known CTs and 0 known cardiac nuclear medicine studies in the 12 months prior to the current study. COMPARISON: CT ABDOMEN PELVIS W CON 11/07/2022 8:14 PM FINDINGS: Lungs: Lung bases are clear. Liver: 2 small indistinct hypodensities within the liver both stable from previous exam but otherwise indeterminate. Gallbladder and bile ducts: Gallbladder has been removed. Bile ducts are not appreciably dilated. Pancreas: Unremarkable. Main pancreatic duct is not significantly dilated. Unremarkable. Main pancreatic duct is not significantly dilated. Spleen: Normal. No splenomegaly. Adrenal glands: Normal. No mass. Kidneys and ureters: Kidneys are unremarkable. No calculi or hydronephrosis detected. Stomach and bowel: Unremarkable. No obstruction. No mucosal thickening. Appendix: No evidence of acute appendicitis. Intraperitoneal space: Unremarkable. No free air. No significant fluid collection. Vasculature: Unremarkable. No abdominal aortic aneurysm. Lymph nodes: Unremarkable. No enlarged lymph nodes. Urinary bladder: Unremarkable as visualized. Reproductive: Soft small left ovarian cyst likely functional in nature. Bones/joints: Unremarkable. No acute fracture. Soft tissues: Unremarkable. IMPRESSION: 1. No acute findings within the abdomen or pelvis. 2. Two small hypodense liver lesions indeterminate but stable from previous exam favoring benign etiology. 3. Small left ovarian cyst likely functional in nature.
--- NOTE | 2023-03-14 20:25 | PC.NURSE ---
While in [facility] Placed a 20 G in R AC. Sent up a rainbow of blood, did a UA, sent up for culture, and Urine preg.
[2023-03-14 20:31] LABS: Basophils # 0.1 K/mm3 (0-0.2); Basophils % 0.5 % (0.1-2.0); Chloride 104 mmol/L (98-107); Eosinophils # 0.1 K/mm3 (0.0-0.4); Hematocrit 41.3 % (37.0-47.0); Hemoglobin 13.9 g/dL (12.2-16.2); Lymphocytes # 2.8 K/mm3 (0.7-4.5); Lymphocytes % 23.2 % (10-50); Mean Corpuscular HGB Conc 33.7 g/dL (31.8-35.4); Mean Corpuscular Hemoglobin 26.7 pg (27.0-31.2); Mean Corpuscular Volume 79.2 fl (81-99); Mean Platelet Volume 9.8 fl (7.4-10.4); Monocytes # 0.6 K/mm3 (0.1-1.0); Monocytes % 5.3 % (1.7-9.3); Neutrophils # 8.4 K/mm3 (1.8-7.8); Neutrophils % 70.1 % (37.0-80.0); Platelet Count 335 K/mm3 (142-424); Red Blood Count 5.21 M/mm3 (4.20-5.40); Red Cell Distribution Width 15.6 % (11.5-17.5); White Blood Count 11.9 K/mm3 (4.8-10.8)
[2023-03-14 20:32] LABS: Potassium 3.7 mmoL/L (3.5-5.1); Sodium 140 mmol/L (136-145)
[2023-03-14 20:34] LABS: Alanine Aminotransferase 27 U/L (12-78); Alkaline Phosphatase 44 U/L (38-126); Anion Gap 11.7 mEq/L (5-15); Aspartate Amino Transferase 40 U/L (14-36); Bilirubin,Total 0.4 mg/dl (0.2-1.3); Blood Urea Nitrogen 13 mg/dl (7-17); Carbon Dioxide 28 mmol/L (22.0-30.0); Creatinine Clearance Estimated 143 mL/min (50-200); Estimated Glomerular Filt Rate 75 ml/min (>60); GFR (African American) 90 ML/MIN (>60); Lipase 78 U/L (23-300)
[2023-03-14 20:35] LABS: Albumin Level 4.3 g/dl (3.5-5.0); Albumin/Globulin Ratio 1.3 (1.1-1.8); Calcium 9.2 mg/dl (8.4-10.2); Globulin 3.3 g/dL (1.3-3.2); Glucose 84 mg/dl (74-100); Total Protein,Serum 7.6 g/dl (6.3-8.2)
--- NOTE | 2023-03-14 20:37 | HMH.EDGENADL ---
Discharge Plan Disposition Patient Disposition: Home, Self-Care Condition: Fair Prescriptions Prescriptions: New promethazine 12.5 mg tablet 12.5 mg PO Q6H PRN (Reason: nausea and vomiting) Qty: 12 0RF No Action amitriptyline 50 mg tablet 50 mg PO HS Qty: 30 2RF dicyclomine 20 mg tablet 20 mg PO TID PRN (Reason: abdominal pain) Qty: 90 1RF Vraylar 1.5 mg capsule 1.5 mg PO DAILY Qty: 90 3RF cholecalciferol (vitamin D3) 25 mcg (1,000 unit) capsule 25 mcg PO DAILY Qty: 90 3RF ergocalciferol (vitamin D2) 1,250 mcg (50,000 unit) capsule 1,250 mcg PO WEEKLY Qty: 14 3RF famotidine 20 mg tablet 20 mg PO DAILY Qty: 90 3RF Rx Instructions: Take 1 tablet by mouth once daily fluticasone propion-salmeterol [Advair Diskus] 100-50 mcg/dose blister with device 1 inh inhalation BID Qty: 60 5RF pantoprazole 40 mg tablet,delayed release (DR/EC) 40 mg PO DAILY Qty: 90 3RF ropinirole 0.5 mg tablet 0.5 mg PO DAILY Qty: 30 2RF Nurtec ODT 75 mg tablet,disintegrating 75 mg PO Q OTHER DAY Qty: 16 2RF prednisone 20 mg tablet 20 mg PO BID 5 Days Qty: 10 0RF lisdexamfetamine [Vyvanse] 20 mg capsule 20 mg PO DAILY Qty: 30 0RF albuterol sulfate 90 mcg/actuation HFA aerosol inhaler 90 mcg inhalation NEEDED PRN (Reason: Breathing Problems) Rx Instructions: INHALE 2 PUFFS BY MOUTH EVERY 6 HOURS Referrals Follow up/Referrals: Miesha Schultz PA [Primary Care Provider] - See instructions Activity Restrictions/Add. Instructions Additional Instructions/Restrictions: At this time it was felt you are safe to be discharged home. If new or worsening symptoms please do not hesitate to return the emergency department. If symptoms persist please follow-up with your family doctor as you are able. Please take your medications as prescribed. Clinical Impressions Clinical Impression: Abdominal pain, Lesion of liver, Cyst of left ovary Instructions Patient Instructions: DI for Acute Abdominal Pain Discharge ED Provider: Cruz Do General Adult HPI General Chief complaint: Abdominal Pain Stated complaint: abd pain Time Seen by Provider: 03/14/23 19:24 Mode of Arrival: Family Vehicle Limitations: No Limitations Description of Symptoms (Recalled from ER Triage Doc. by RN): 27 yo female sent to us from [facility] with increasing abd pain over the course of 3 days. States it began as periumbilical pain that has since radiated around to towards her right side. Pain intensity is increasing now. Denies dysuria. denies vaginal discharge/discomfort. denies fever. History of Present Illness HPI narrative: Patient is a 19-year-old female past medical history of cholecystitis status postcholecystectomy who presents emergency department for evaluation of abdominal pain. Onset was acute, over the last 3 days. Patient has had chronic diarrhea since her cholecystectomy approximately 4 years ago. There is a family history of Crohn's. She has associated nausea and right lower quadrant abdominal pain which has gotten progressively worse causing her to present here for continued evaluation. No significant dysuria, no vaginal discharge or bleeding. Last menstrual period 2 weeks ago. Related Data Home Medications Medication Instructions Recorded Confirmed albuterol sulfate 90 mcg/actuation 90 mcg inhalation NEEDED PRN 12/04/22 03/14/23 aerosol inhaler Breathing Problems Previous Rx's Medication Instructions Recorded cariprazine 1.5 mg capsule 1.5 mg PO DAILY Anxiety #90 caps 01/14/23 (Vraylar) cholecalciferol (vitamin D3) 25 25 mcg PO DAILY Supplement #90 caps 01/14/23 mcg (1,000 unit) capsule ergocalciferol (vitamin D2) 1,250 1,250 mcg PO WEEKLY Supplement #14 01/14/23 mcg (50,000 unit) capsule caps famotidine 20 mg tablet 20 mg PO DAILY reflux #90 tabs 01/14/23 fluticasone 100 mcg-salmeterol 50 1 inh inhalation BID Asthma #60 ea 01/14/23 mcg/dose blistr powdr for inhalation (Advair Diskus) pantoprazole 40 mg tablet,delayed 40 mg PO DAILY reflux #90 tabs 01/14/23 release rimegepant 75 mg disintegrating 75 mg PO Q OTHER DAY migraines #16 01/14/23 tablet (Nurtec ODT) tabs ropinirole 0.5 mg tablet 0.5 mg PO DAILY #30 tabs 01/14/23 amitriptyline 50 mg tablet 50 mg PO HS #30 tabs 02/11/23 dicyclomine 20 mg tablet 20 mg PO TID PRN abdominal pain 02/11/23 #90 tabs prednisone 20 mg tablet 20 mg PO BID 5 days #10 tabs 02/24/23 lisdexamfetamine 20 mg capsule 20 mg PO DAILY #30 caps 03/05/23 (Vyvanse) promethazine 12.5 mg tablet 12.5 mg PO Q6H PRN nausea and 03/14/23 vomiting #12 tabs Allergies Allergy/AdvReac Type Severity Reaction Status Date / Time ondansetron [From Zofran] Allergy Redness of Verified 03/14/23 20:04 Skin latex AdvReac Verified 03/14/23 20:04 PFS PFS Disclaimer: The information contained in this section may have been updated after the patient was seen, as this information can be updated by other users. Medical History (Updated 03/14/23 @ 22:04 by Cruz Do MD) Abdominal pain Anxiety Apneic episode Asthma Buttocks nodule Cryptic tonsil Depression Deviated nasal septum Dysphagia Frequent loose stools Hemangioma of liver Hypertrophy of nasal turbinates Left ear pain Otosclerosis Palpitations Skin tag Sleep apnea Snoring Tonsillectomy planned Surgical History Carpal tunnel syndrome History of placement of ear tubes Hx of cholecystectomy Family History Grandmother Hypertension Stroke Grandfather Heart attack Hypertension Father Hypertension Crohn disease Other Asthma Social History Smoking Status: Former smoker alcohol intake: current substance use type: marijuana current occupational status: employed Travel in the last 8 weeks: None ROS Obtained: Yes Systems reviewed as appropriate & no additional complaints except as documented Physical Exam General General appearance: alert and other (Appearing in pain) Head Head exam: atraumatic and normocephalic Eye Eye exam: Present PERRL and EOMI ENT ENT exam: Present mucous membranes moist Neck Neck exam: Present normal inspection Chest Chest inspection: Present normal inspection and symmetric chest wall rise Respiratory Respiratory exam: Present normal lung sounds bilaterally; Absent respiratory distress Cardiovascular Cardiovascular exam: Present regular rate and normal rhythm Abdominal Exam Abdominal exam: Present soft, tenderness (Right lower quadrant) and guarding (Voluntary) Extremities Exam Extremities exam: Present normal inspection Neurological Exam Neurological exam: Present alert Psychiatric Psychiatric exam: Present normal affect Skin Skin exam: Present warm and dry Medical Decision Making Leo Inquiry Pt receiving controlled substance: No Vital Signs: 03/14/23 19:17 03/14/23 20:12 03/14/23 21:00 Temperature 98.0 F 98.3 F Temperature Source Oral Oral Pulse Rate 88 Pulse Rate [Right Radial] 104 H 73 Respiratory Rate 18 19 20 Blood Pressure 123/75 Blood Pressure [Right Arm] 126/69 142/79 H Blood Pressure Mean 91 Blood Pressure Mean [Right Arm] 88 100 Blood Pressure Source [Right Arm] Automatic Cuff Automatic Cuff Blood Pressure Position [Right Arm] Sitting Sitting 02 Sat by Pulse Oximetry 96 98 99 Oxygen Delivery Method Room Air Room Air Room Air 03/14/23 21:31 Temperature Temperature Source Pulse Rate 77 Pulse Rate [Right Radial] Respiratory Rate 18 Blood Pressure 110/71 Blood Pressure [Right Arm] Blood Pressure Mean 82 Blood Pressure Mean [Right Arm] Blood Pressure Source [Right Arm] Blood Pressure Position [Right Arm] 02 Sat by Pulse Oximetry 100 Oxygen Delivery Method Room Air Lab Data Lab Results 03/14/23 19:34: Urine Color Yellow, Urine Appearance Clear, Urine pH 5.5, Ur Specific [place] >= 1.030, Urine Protein Negative, Urine Glucose (UA) Negative, Urine Ketones Negative, Urine Blood Trace-i, Urine Nitrate Negative, Urine Bilirubin Negative, Urine Urobilinogen 0.2, Ur Leukocyte Esterase Negative, Urine RBC Occasional, Urine WBC None, Ur Squamous Epith Cells 3-5, Urine Bacteria None, Urine Mucus Trace, Urine HCG, Qual Negative 03/14/23 19:57: WBC 11.9 H, RBC 5.21, Hgb 13.9, Hct 41.3, MCV 79.2 L, MCH 26.7 L, MCHC 33.7, RDW 15.6, Plt Count 335, MPV 9.8, Neut % (Auto) 70.1, Lymph % (Auto) 23.2, [place] % (Auto) 5.3, Eos % (Auto) 1.0, Baso % (Auto) 0.5, Neut # (Auto) 8.4 H, Lymph # (Auto) 2.8, [place] # (Auto) 0.6, Eos # (Auto) 0.1, Baso # (Auto) 0.1, Sodium 140, Potassium 3.7, Chloride 104, Carbon Dioxide 28, Anion Gap 11.7, BUN 13, Creatinine 0.90, Estimated Creat Clear 143, Estimated GFR 75, Est GFR ( Amer) 90, Glucose 84, Calcium 9.2, Total Bilirubin 0.4, AST 40 H, ALT 27, Alkaline Phosphatase 44, Total Protein 7.6, Albumin 4.3, Globulin 3.3 H, Albumin/Globulin Ratio 1.3, Lipase 78 03/14/23 19:57 03/14/23 19:57 Orders (Tests/Meds): ED MEDICATIONS Discontinued Medications Generic Name Dose Route Start Last Admin Trade Name Freq PRN Reason Stop Dose Admin Lactated Ringer's 1,000 mls @ 999 mls/hr 03/14/23 20:36 03/14/23 20:59 Lactated Ringer's 1000 Ml Bag IV 03/14/23 21:36 999 mls/hr .Q1H1M ONE Administration Iopamidol 75 ml 03/14/23 20:48 03/14/23 20:49 Iopamidol-370 (76%);100ml Bottle IV 03/14/23 20:49 75 ml ONCE ONE Administration Ketorolac Tromethamine 30 mg 03/14/23 20:36 03/14/23 20:59 Ketorolac 30mg/Ml Vial IV 03/14/23 20:37 30 mg ONCE ONE Administration Morphine Sulfate 4 mg 03/14/23 20:36 03/14/23 20:59 Morphine 4mg/Ml Syringe IV 03/14/23 20:37 4 mg ONCE ONE Administration Promethazine HCl 25 mg 03/14/23 20:37 03/14/23 20:59 Promethazine Hcl 25mg/Ml 1ml Vial IV 03/14/23 20:38 25 mg ONCE ONE Administration Sodium Chloride 25 ml 03/14/23 20:37 03/14/23 20:59 Sodium Chloride 0.9% 25ml Bag IV 03/14/23 20:38 25 ml ONCE ONE Administration Sodium Chloride 10 ml 03/14/23 20:48 03/14/23 20:49 Sodium Chloride 0.9% 10ml Syr (Rad Only) IV 03/14/23 20:49 10 ml ONCE ONE Administration ORDERS Category Date Time Status CT abdomen pelvis w con Stat Cat Scan 03/14/23 20:23 Completed Complete Blood Count Auto Diff Stat Lab 03/14/23 19:57 Completed Comprehensive Metabolic Panel Stat Lab 03/14/23 19:57 Completed Lipase Stat Lab 03/14/23 19:57 Completed Rapid PCR Covid and Flu A/B Stat Lab 03/14/23 21:00 Received UA [Urinalysis and Microscopic] Stat Lab 03/14/23 19:34 Completed Urine , HCG Qual. Stat Lab 03/14/23 19:34 Completed Medical Decision Narrative: In summary patient is a 19-year-old female past medical history described above who presents emergency department for evaluation abdominal pain. Patient is hemodynamically stable nontoxic-appearing upon arrival, afebrile, appearing in pain. Differential diagnosis includes appendicitis, urinary tract infection, ureterolithiasis, terminal ileitis, among others. Workup will be conducted with hematologic labs, urinalysis, viral swab, CT abdomen pelvis IV contrast. Initial inventions include Phenergan, morphine, Toradol, Tylenol, crystalloid bolus. Initial workup reviewed by me, hematologic labs have mild leukocytosis 11.9 no NESTOR, no electrolyte abnormalities. Urinalysis interpreted by me and not consistent with infection, patient is non. CT imaging shows no acute findings within the abdomen pelvis, 2 small hypodense liver lesions stable from previous imaging favoring benign etiology, small left ovarian cyst. Given that patient is painful on the right, has no large ovarian cyst that would put patient at risk for torsion workup with transvaginal sound was considered but will be deferred. Patient had large resolution of pain, was resting comfortably in bed and underwent p.o. trial and was successful. Given this patient is appropriate for discharge at this time will be discharged with a course of Zofran. Critical Care Critical Care Time Critical Care Time: No
[2023-03-14] MEDS: IOPAMIDOL-370 (76%);100ML BOTTLE 75 ML IV (20:49)
[2023-03-14] MEDS: SODIUM CHLORIDE 0.9% 10ML SYR (RAD ONLY) 10 ML IV (20:49)
[2023-03-14 20:51] LABS: Microscopic, Urine URINE MICROSCOPIC (MICROSCOPIC)
[2023-03-14 20:54] LABS: Appearance,Urine CLEAR (Clear); Bilirubin,Urine Negative (Negative); Blood, Urine TRACE-I (Negative); Color,Urine YELLOW (Yellow); Glucose,Urine (UA) Negative (Negative); Ketones,Urine Negative (Negative); Leukocyte Esterase,Urine Negative (Negative); Nitrate,Urine Negative (Negative); PH,Urine 5.5 (5.0-8.5); Protein,Urine Negative (Negative); Specific Gravity, Urine >= 1.030 (1.005-1.030); Urobilinogen,Urine 0.2 EU/dl (0.2)
[2023-03-14] MEDS: KETOROLAC 30MG/ML VIAL 30 MG IV (20:59)
[2023-03-14] MEDS: SODIUM CHLORIDE 0.9% 25ML BAG 25 ML IV (20:59)
[2023-03-14] MEDS: LACTATED RINGERS 1000ML 1,000 ML 999 ML IV (20:59)
[2023-03-14] MEDS: PROMETHAZINE HCL 25MG/ML 1ML VIAL 25 MG IV (20:59)
[2023-03-14] MEDS: MORPHINE 4MG/ML SYRINGE 4 MG IV (20:59)
[2023-03-14 21:00] VITALS: BP 123/75; PULSE 88; RESP 20; O2SAT 99
[2023-03-14 21:07] LABS: Coronavirus 19, PCR Not Detected (NotDetected); Influenza A, PCR Not Detected (NotDetected); Influenza B, PCR Not Detected (NotDetected)
[2023-03-14 21:10] LABS: Mucus,Urine Trace /lpf; RBC,Urine Occasional #/hpf (0-3)
[2023-03-14 21:31] VITALS: BP 110/71; PULSE 77; RESP 18; O2SAT 100
[2023-03-14 22:05] VITALS: BP 128/77; PULSE 90; RESP 15; TEMP 36.7; O2SAT 100
== END 2023-03-14 22:13 | disposition home or self-care (01) ==
LOC: UTC 20:00 → ER 20:06
PROVIDERS: Nurse Practitioner Family; Emergency Provider Emergency Medicine; PCP Physician Assistant
DX: R10.31 Right lower quadrant pain (principal); J45.909 Unspecified asthma, uncomplicated; G47.30 Sleep apnea, unspecified; Z87.891 Personal history of nicotine dependence
CPT/HCPCS: 74177; 80053; 81001; 81025; 83690; 85025; 87636; 96361; 96374; 96375; 99285; Q9967

== ENCOUNTER 2023-03-23 17:57 | Outpatient (CLI) | payer BC, OTHER, SELFPAY ==
[2023-03-23 18:08] LABS: Adenovirus,PCR Not Detected (NotDetected); Coronavirus 19, PCR Not Detected (NotDetected); Coronavirus 229E Not Detected (NotDetected); Coronavirus NL63 Not Detected (NotDetected); Coronavirus OC43 Not Detected (NotDetected); Coronovirus HKU1,PCR Not Detected (NotDetected); Human Metapneumovirus Not Detected (NotDetected); Influenza A, PCR Not Detected (NotDetected); Influenza AH1, 2009 Not Detected (NotDetected); Influenza AH1, PCR Not Detected (NotDetected); Influenza AH3,PCR Not Detected (NotDetected); Influenza B, PCR Not Detected (NotDetected); Parainfluenza 1, PCR Not Detected (NotDetected); Parainfluenza 2, PCR Not Detected (NotDetected); Parainfluenza 3, PCR Not Detected (NotDetected); Parainfluenza 4, PCR Not Detected (NotDetected); Respiratory Syncytial Virus Not Detected (NotDetected); Rhinovirus/Enterovirus Not Detected (NotDetected)
== END 2023-03-23 23:59 ==
PROVIDERS: PCP Student in an Organized Health Care Education/Training Program; Visit Provider Student in an Organized Health Care Education/Training Program
DX: J40 Bronchitis, not specified as acute or chronic (principal); R05.9 Cough, unspecified; R06.02 Shortness of breath; R09.89 Other specified symptoms and signs involving the circulatory and respiratory systems; Z20.822 Contact with and (suspected) exposure to COVID-19
CPT/HCPCS: 87581; 87632; 87635; 87798

== ENCOUNTER 2023-03-24 11:47 | Outpatient (CLI) | payer BC, OTHER, SELFPAY ==
--- NOTE | 2023-03-24 11:51 | XR_ITS ---
FINAL REPORT CLINICAL HISTORY: cough COMPARISON: 06/21/2022 FINDINGS: Two views of the chest were obtained. The heart size and pulmonary vascularity are within normal limits. The mediastinum is normal. No acute pulmonary abnormality is identified. There is no pneumothorax. The bony thorax is intact. IMPRESSION: No active cardiopulmonary disease. Reviewed, Interpreted and Dictated by Pelon Fuentes III, MD Transcribed by Shirin Coulter Authenticated and [facility]
== END 2023-03-24 23:59 ==
PROVIDERS: PCP Physician Assistant; Visit Provider Student in an Organized Health Care Education/Training Program
DX: R05.9 Cough, unspecified (principal)
CPT/HCPCS: 71046

== ENCOUNTER 2023-04-06 14:22 | Emergency (ER) | payer BC, OTHER, SELFPAY ==
[2023-04-06 14:30] VITALS: BP 116/56; PULSE 86; RESP 18; TEMP 36.9; O2SAT 96; BMI 39.3
--- NOTE | 2023-04-06 14:37 | ED_ITS ---
Discharge Plan Disposition Patient Disposition: Home, Self-Care Condition: Good Prescriptions Prescriptions: New methylprednisolone 4 mg Tablets,Dose Pack 4 mg PO DIRECTED 6 Days Qty: 21 0RF Rx Instructions: Take 1 pack as directed for 6 days [id number] [Bromfed DM] 2-30-10 mg/5 mL Syrup 5 ml PO Q6H PRN (Reason: Cough) Qty: 240 0RF cefdinir 300 mg capsule 300 mg PO BID Qty: 20 0RF albuterol sulfate 2.5 mg /3 mL (0.083 %) solution for nebulization 2.5 mg inhalation Q6H PRN (Reason: shortness of breath or wheezing) Qty: 90 2RF No Action amitriptyline 50 mg tablet 50 mg PO HS Qty: 30 2RF dicyclomine 20 mg tablet 20 mg PO TID PRN (Reason: abdominal pain) Qty: 90 1RF Vraylar 1.5 mg capsule 1.5 mg PO DAILY Qty: 90 3RF cholecalciferol (vitamin D3) 25 mcg (1,000 unit) capsule 25 mcg PO DAILY Qty: 90 3RF ergocalciferol (vitamin D2) 1,250 mcg (50,000 unit) capsule 1,250 mcg PO WEEKLY Qty: 14 3RF famotidine 20 mg tablet 20 mg PO DAILY Qty: 90 3RF Rx Instructions: Take 1 tablet by mouth once daily fluticasone propion-salmeterol [Advair Diskus] 100-50 mcg/dose blister with device 1 inh inhalation BID Qty: 60 5RF pantoprazole 40 mg tablet,delayed release (DR/EC) 40 mg PO DAILY Qty: 90 3RF ropinirole 0.5 mg tablet 0.5 mg PO DAILY Qty: 30 2RF Nurtec ODT 75 mg tablet,disintegrating 75 mg PO Q OTHER DAY Qty: 16 2RF lisdexamfetamine [Vyvanse] 20 mg capsule 20 mg PO DAILY Qty: 30 0RF albuterol sulfate 90 mcg/actuation HFA aerosol inhaler 90 mcg inhalation NEEDED PRN (Reason: Breathing Problems) Rx Instructions: INHALE 2 PUFFS BY MOUTH EVERY 6 HOURS Referrals Follow up/Referrals: Miesha Schultz PA [Primary Care Provider] - See instructions Activity Restrictions/Add. Instructions Additional Instructions/Restrictions: Drink plenty of fluids. Take tylenol or ibuprofen for pain or fever. Take the medications as directed. Follow up with your regular doctor. GO TO THE ER FOR ANY WORSENING SYMPTOMS Clinical Impressions Clinical Impression: Asthma exacerbation Stand Alone Forms Stand Alone Forms: Work/School Release Instructions Patient Instructions: Asthma -- Adult Discharge ED Provider: Carlos Zarate [facility] General Stated complaint: back pain and cough Time Seen by Provider: 04/06/23 14:37 History of Present Illness Provider Complaint: She states that she has been having worsening chest congestion, wheezing and sinus congestion for the past 3 days. She has a history of asthma. Related Data Home Medications Medication Instructions Recorded Confirmed albuterol sulfate 90 mcg/actuation 90 mcg inhalation NEEDED PRN 12/04/22 04/06/23 aerosol inhaler Breathing Problems Previous Rx's Medication Instructions Recorded cariprazine 1.5 mg capsule 1.5 mg PO DAILY Anxiety #90 caps 01/14/23 (Vraylar) cholecalciferol (vitamin D3) 25 25 mcg PO DAILY Supplement #90 caps 01/14/23 mcg (1,000 unit) capsule ergocalciferol (vitamin D2) 1,250 1,250 mcg PO WEEKLY Supplement #14 01/14/23 mcg (50,000 unit) capsule caps famotidine 20 mg tablet 20 mg PO DAILY reflux #90 tabs 01/14/23 fluticasone 100 mcg-salmeterol 50 1 inh inhalation BID Asthma #60 ea 01/14/23 mcg/dose blistr powdr for inhalation (Advair Diskus) pantoprazole 40 mg tablet,delayed 40 mg PO DAILY reflux #90 tabs 01/14/23 release rimegepant 75 mg disintegrating 75 mg PO Q OTHER DAY migraines #16 01/14/23 tablet (Nurtec ODT) tabs ropinirole 0.5 mg tablet 0.5 mg PO DAILY #30 tabs 01/14/23 amitriptyline 50 mg tablet 50 mg PO HS #30 tabs 02/11/23 dicyclomine 20 mg tablet 20 mg PO TID PRN abdominal pain 02/11/23 #90 tabs lisdexamfetamine 20 mg capsule 20 mg PO DAILY #30 caps 03/05/23 (Vyvanse) albuterol sulfate 2.5 mg/3 mL 2.5 mg (3 mL) inhalation Q6H PRN 04/06/23 (0.083 %) solution for nebulization shortness of breath or wheezing #90 mL [id number]-[id number]-UP 5 ml PO Q6H PRN Cough #240 mL 04/06/23 2 mg-30 mg-10 mg/5 mL oral syrup (Bromfed DM) cefdinir 300 mg capsule 300 mg PO BID #20 caps 04/06/23 methylprednisolone 4 mg tablets in 4 mg PO DIRECTED 6 days #21 tabs 04/06/23 a dose pack Allergies Allergy/AdvReac Type Severity Reaction Status Date / Time ondansetron [From Zofran] Allergy Redness of Verified 04/06/23 14:45 Skin latex AdvReac Verified 04/06/23 14:45 PFSH [facility] Disclaimer: The information contained in this section may have been updated after the patient was seen, as this information can be updated by other users. Medical History Abdominal pain Anxiety Apneic episode Asthma Buttocks nodule Post surgical wound dehiscence Culture obtained Wet to dry dressings, try to avoid dragging when sitting/changing positions Cryptic tonsil Depression Deviated nasal septum Dysphagia Frequent loose stools Hemangioma of liver Hypertrophy of nasal turbinates Left ear pain Otosclerosis Palpitations Skin tag SKIN TAG REMOVED Sleep apnea Snoring Tonsillectomy planned Surgical History Carpal tunnel syndrome History of placement of ear tubes Hx of cholecystectomy Family History Grandmother Hypertension Stroke Grandfather Heart attack Hypertension Father Hypertension Crohn disease Other Asthma Social History Smoking Status: Former smoker alcohol intake: former substance use type: marijuana current occupational status: employed Travel in the last 8 weeks: None ROS Obtained: Yes All systems reviewed & no additional complaints except as documented Constitutional Constitutional: Reports poor appetite Eyes Eyes: Reports system reviewed and no additional complaints, except as documented ENT Ears, Nose, Mouth, and Throat: Reports as per HPI Cardiovascular Cardiovascular: Reports system reviewed and no additional complaints, except as documented and Denies chest pain Respiratory Respiratory: Denies shortness of breath, Denies chest congestion, Reports cough, Denies stridor and Denies wheezing Gastrointestinal Gastrointestingal: Reports system reviewed and no additional complaints, except as documented; Denies abdominal pain, diarrhea or vomiting Musculoskeletal Musculoskeletal: Reports system reviewed and no additional complaints, except as documented and Denies arthralgias Integumentary/Breasts Skin/Breast: Reports system reviewed and no additional complaints, except as documented and Denies rash Neurologic Neurologic: Denies paresthesias Allergic/Immunologic Allergic/Immunologic: Denies wheezing Physical Exam General General appearance: alert and in no apparent distress Head Head exam: atraumatic, normocephalic and normal inspection Eye Eye exam: Present normal appearance, PERRL and EOMI ENT ENT exam: Present normal exam, normal oropharynx, mucous membranes moist, TM's normal bilaterally and normal external ear exam Neck Neck exam: Present normal inspection, full ROM and trachea midline; Absent meningismus or lymphadenopathy Chest Chest inspection: Present normal inspection and symmetric chest wall rise; Absent tenderness Respiratory Respiratory exam: Present normal lung sounds bilaterally; Absent respiratory distress Cardiovascular Cardiovascular exam: Present regular rate and normal rhythm; Absent JVD Abdominal Exam Abdominal exam: Present soft and normal bowel sounds; Absent distention, tenderness or guarding Extremities Exam Extremities exam: Present normal inspection, full ROM and normal capillary refill; Absent calf tenderness Back Exam Back exam: Present normal inspection; Absent tenderness Neurological Exam Neurological exam: Present alert and oriented X3 Psychiatric Psychiatric exam: Present normal affect and normal mood Skin Skin exam: Present warm, dry, intact and normal color Lymphatic Lymphatic Findings: no adenopathy Medical Decision Making Medical Records Medical records reviewed: No I reviewed the patient's medical records. Leo Inquiry Pt receiving controlled substance: No
[2023-04-06 15:07] LABS: Apearance,Urine Clear (Clear); Bilirubin,Urine Negative (Negative); Blood, Urine 1+ (Negative); Color,Urine Yellow (Yellow); Glucose,Urine (UA) Negative (Negative); Ketones,Urine Negative (Negative); Protein,Urine Negative (Negative); UTC Leukocyte Esterase,Urine 1+ (Negative); UTC Nitrate,Urine Negative (Negative); Urobilinogen,Urine 0.2 EU/dl (0.2)
[2023-04-06 15:14] VITALS: BP 116/56; PULSE 86; RESP 18; TEMP 36.9; O2SAT 96
== END 2023-04-06 15:14 | disposition home or self-care (01) ==
PROVIDERS: Emergency Provider Nurse Practitioner Family; PCP Physician Assistant
DX: J45.901 Unspecified asthma with (acute) exacerbation; R05.9 Cough, unspecified; B95.7 Other staphylococcus as the cause of diseases classified elsewhere; R09.89 Other specified symptoms and signs involving the circulatory and respiratory systems; R09.81 Nasal congestion
CPT/HCPCS: 81003; 87086; 99212; 99214; G0463

== ENCOUNTER 2023-04-11 19:32 | Emergency (ER) | payer BC, OTHER, SELFPAY ==
[2023-04-11 19:42] VITALS: BP 153/93; PULSE 106; RESP 20; TEMP 36.7; O2SAT 97; BMI 39.3
--- NOTE | 2023-04-11 20:02 | XR_ITS ---
PROCEDURE INFORMATION: Exam: XR Right Ankle Exam date and time: 04/11/2023 7:59 PM Age: 27 years old Clinical indication: Pain; Foot; Right; Additional info: Injury and pain TECHNIQUE: Imaging protocol: Radiologic exam of the right ankle. Views: 3 or more views. COMPARISON: No relevant prior studies available. FINDINGS: Bones/joints: Normal. Soft tissues: Mild soft tissue swelling. IMPRESSION: No evidence of acute osseous injury.
--- NOTE | 2023-04-11 20:02 | XR_ITS ---
PROCEDURE INFORMATION: Exam: XR Right Tibia and Fibula Exam date and time: 04/11/2023 8:00 PM Age: 27 years old Clinical indication: Pain; Foot and lower leg; Right; Additional info: Injury and pain TECHNIQUE: Imaging protocol: Radiologic exam of the right tibia and fibula. Views: 2 views. COMPARISON: CR XR ANKLE RT MIN 3V 04/11/2023 7:59 PM FINDINGS: Bones/joints: Normal. Soft tissues: Normal. IMPRESSION: No acute findings.
--- NOTE | 2023-04-11 20:02 | XR_ITS ---
PROCEDURE INFORMATION: Exam: XR Right Foot Exam date and time: 04/11/2023 8:01 PM Age: 27 years old Clinical indication: Pain; Foot; Right; Additional info: Injury and pain TECHNIQUE: Imaging protocol: Radiologic exam of the right foot. Views: 3 or more views. COMPARISON: CR XR TIBIA FIBULA RT 2V 04/11/2023 8:00 PM FINDINGS: Bones/joints: Normal. Soft tissues: Normal. IMPRESSION: No acute findings.
--- NOTE | 2023-04-11 20:04 | ED_ITS ---
Discharge Plan Disposition Patient Disposition: Home, Self-Care Prescriptions Prescriptions: No Action amitriptyline 50 mg tablet 50 mg PO HS Qty: 30 2RF dicyclomine 20 mg tablet 20 mg PO TID PRN (Reason: abdominal pain) Qty: 90 1RF Vraylar 1.5 mg capsule 1.5 mg PO DAILY Qty: 90 3RF cholecalciferol (vitamin D3) 25 mcg (1,000 unit) capsule 25 mcg PO DAILY Qty: 90 3RF ergocalciferol (vitamin D2) 1,250 mcg (50,000 unit) capsule 1,250 mcg PO WEEKLY Qty: 14 3RF famotidine 20 mg tablet 20 mg PO DAILY Qty: 90 3RF Rx Instructions: Take 1 tablet by mouth once daily fluticasone propion-salmeterol [Advair Diskus] 100-50 mcg/dose blister with device 1 inh inhalation BID Qty: 60 5RF pantoprazole 40 mg tablet,delayed release (DR/EC) 40 mg PO DAILY Qty: 90 3RF ropinirole 0.5 mg tablet 0.5 mg PO DAILY Qty: 30 2RF Nurtec ODT 75 mg tablet,disintegrating 75 mg PO Q OTHER DAY Qty: 16 2RF lisdexamfetamine [Vyvanse] 20 mg capsule 20 mg PO DAILY Qty: 30 0RF albuterol sulfate 90 mcg/actuation HFA aerosol inhaler 90 mcg inhalation NEEDED PRN (Reason: Breathing Problems) Rx Instructions: INHALE 2 PUFFS BY MOUTH EVERY 6 HOURS methylprednisolone 4 mg Tablets,Dose Pack 4 mg PO DIRECTED 6 Days Qty: 21 0RF Rx Instructions: Take 1 pack as directed for 6 days ugwnyialrhuatfz-lwdugajsy-CL [Bromfed DM] 2-30-10 mg/5 mL Syrup 5 ml PO Q6H PRN (Reason: Cough) Qty: 240 0RF cefdinir 300 mg capsule 300 mg PO BID Qty: 20 0RF albuterol sulfate 2.5 mg /3 mL (0.083 %) solution for nebulization 2.5 mg inhalation Q6H PRN (Reason: shortness of breath or wheezing) Qty: 90 2RF Referrals Follow up/Referrals: Miesha Schultz PA [Primary Care Provider] - See instructions Juan José Kellogg DO [Staff Physician] - See instructions (if not improving in 1- 2 weeks ) Activity Restrictions/Add. Instructions Additional Instructions/Restrictions: No evidence of fracture or dislocation please follow-up with Dr. Kellogg in 1 to 2 weeks if you are not improving you may take Tylenol and ibuprofen as needed for your symptoms keep your foot elevated you may use ice as well return to the emergency room with any worsening of her symptoms. Clinical Impressions Clinical Impression: Right ankle sprain, Right foot sprain Stand Alone Forms Stand Alone Forms: Work/School Release Discharge ED Provider: Ivan Stevens General Adult HPI General Chief complaint: Extremity Injury, Lower Stated complaint: AO [id number] swollen on bottom of right foot Time Seen by Provider: 04/11/23 19:58 Mode of Arrival: Ambulatory Source of Information: Patient Limitations: No Limitations Description of Symptoms (Recalled from ER Triage Doc. by RN): Pt ambulatory to ED with c/o right foot pain that started yesterday morning after stepping out of truck and twisting ankle. Pt reports right ankle starting swelling today, she is unable to put pressure on right foot, and states the pain radiates up right leg. History of Present Illness HPI narrative: Patient is a 19-year-old female present today with right lower extremity injury after try to get into a truck yesterday and twisting her ankle she has pain in her tib-fib ankle and foot region. She has some swelling over the medial aspect of the hindfoot. Close to her calcaneus. Has been able to ambulate but with difficulty. Related Data Home Medications Medication Instructions Recorded Confirmed albuterol sulfate 90 mcg/actuation 90 mcg inhalation NEEDED PRN 12/04/22 04/06/23 aerosol inhaler Breathing Problems Previous Rx's Medication Instructions Recorded cariprazine 1.5 mg capsule 1.5 mg PO DAILY Anxiety #90 caps 01/14/23 (Vraylar) cholecalciferol (vitamin D3) 25 25 mcg PO DAILY Supplement #90 caps 01/14/23 mcg (1,000 unit) capsule ergocalciferol (vitamin D2) 1,250 1,250 mcg PO WEEKLY Supplement #14 01/14/23 mcg (50,000 unit) capsule caps famotidine 20 mg tablet 20 mg PO DAILY reflux #90 tabs 01/14/23 fluticasone 100 mcg-salmeterol 50 1 inh inhalation BID Asthma #60 ea 01/14/23 mcg/dose blistr powdr for inhalation (Advair Diskus) pantoprazole 40 mg tablet,delayed 40 mg PO DAILY reflux #90 tabs 01/14/23 release rimegepant 75 mg disintegrating 75 mg PO Q OTHER DAY migraines #16 01/14/23 tablet (Nurtec ODT) tabs ropinirole 0.5 mg tablet 0.5 mg PO DAILY #30 tabs 01/14/23 amitriptyline 50 mg tablet 50 mg PO HS #30 tabs 02/11/23 dicyclomine 20 mg tablet 20 mg PO TID PRN abdominal pain 02/11/23 #90 tabs lisdexamfetamine 20 mg capsule 20 mg PO DAILY #30 caps 03/05/23 (Vyvanse) albuterol sulfate 2.5 mg/3 mL 2.5 mg (3 mL) inhalation Q6H PRN 04/06/23 (0.083 %) solution for nebulization shortness of breath or wheezing #90 mL poglqvvhzcoajbx-zhhdsmrylaimjjv-UO 5 ml PO Q6H PRN Cough #240 mL 04/06/23 2 mg-30 mg-10 mg/5 mL oral syrup (Bromfed DM) cefdinir 300 mg capsule 300 mg PO BID #20 caps 04/06/23 methylprednisolone 4 mg tablets in 4 mg PO DIRECTED 6 days #21 tabs 04/06/23 a dose pack Allergies Allergy/AdvReac Type Severity Reaction Status Date / Time ondansetron [From Zofran] Allergy Redness of Verified 04/06/23 14:45 Skin latex AdvReac Verified 04/06/23 14:45 PFSH PFSH Disclaimer: The information contained in this section may have been updated after the patient was seen, as this information can be updated by other users. Medical History Abdominal pain Anxiety Apneic episode Asthma Buttocks nodule Post surgical wound dehiscence Culture obtained Wet to dry dressings, try to avoid dragging when sitting/changing positions Cryptic tonsil Depression Deviated nasal septum Dysphagia Frequent loose stools Hemangioma of liver Hypertrophy of nasal turbinates Left ear pain Otosclerosis Palpitations Skin tag SKIN TAG REMOVED Sleep apnea Snoring Tonsillectomy planned Surgical History Carpal tunnel syndrome History of placement of ear tubes Hx of cholecystectomy Family History Grandmother Hypertension Stroke Grandfather Heart attack Hypertension Father Hypertension Crohn disease Other Asthma Social History Smoking Status: Never smoker alcohol intake: former substance use type: marijuana current occupational status: employed Travel in the last 8 weeks: None ROS Obtained: Yes All systems reviewed & no additional complaints except as documented Physical Exam General General appearance: alert Respiratory Respiratory exam: Present normal lung sounds bilaterally Cardiovascular Cardiovascular exam: Present regular rate Extremities Exam Extremities exam: Present other (Tenderness palpation mid tib-fib with compression down to the bilateral malleolus, majority of her pain and tenderness is on the medial malleolus also has some significant soft tissue swelling and some slight ecchymosis around the calcaneus and the medial mid and hindfoot) Neurological Exam Neurological exam: Present alert and oriented X3 Medical Decision Making Leo Inquiry Pt receiving controlled substance: No Vital Signs: 04/11/23 19:42 Temperature 98.0 F Temperature Source Oral Pulse Rate [Left Radial] 106 H Respiratory Rate 20 Blood Pressure [Right Arm] 153/93 H Blood Pressure Mean [Right Arm] 113 Blood Pressure Source [Right Arm] Automatic Cuff Blood Pressure Position [Right Arm] Sitting 02 Sat by Pulse Oximetry 97 Oxygen Delivery Method Room Air Orders (Tests/Meds): ED MEDICATIONS Discontinued Medications Generic Name Dose Route Start Last Admin Trade Name Freq PRN Reason Stop Dose Admin Acetaminophen 1,000 mg 04/11/23 20:02 04/11/23 20:28 Acetaminophen 500mg Tab PO 04/11/23 20:03 1,000 mg ONCE ONE Administration Ibuprofen 800 mg 04/11/23 20:02 04/11/23 20:27 Ibuprofen 400 Mg Tablet PO 04/11/23 20:03 800 mg ONCE ONE Administration ORDERS Category Date Time Status Ankle XR -Right minimum 3 Views [XR ankle RT min 3V] Exams 04/11/23 20:02 Completed Stat Foot XR right minimum 3 views [XR foot RT min 3V] Stat Exams 04/11/23 20:02 Completed Tibia/fibula XR right 2 views [XR tibia fibula RT 2V] Exams 04/11/23 20:02 Completed Stat Medical Decision Narrative: 19-year-old female history as above sprain versus fracture versus dislocation plain films pending will reassess Tylenol and ibuprofen have been administered. Performed I personally interpreted also reviewed radiology read no evidence of fracture dislocation or acute abnormality. She was placed in a boot able to ambulate advised to follow-up with orthopedic surgery if she is not improving in 1 to 2 weeks otherwise supportive care discussed she was discharged in stable condition Critical Care Critical Care Time Critical Care Time: No
[2023-04-11] MEDS: IBUPROFEN 400 MG TABLET 800 MG PO (20:27)
[2023-04-11] MEDS: ACETAMINOPHEN 500MG TAB 1000 MG PO (20:28)
[2023-04-11 21:09] VITALS: BP 121/70; PULSE 103; RESP 18; TEMP 36.7; O2SAT 98
== END 2023-04-11 21:12 | disposition home or self-care (01) ==
PROVIDERS: Emergency Provider Student in an Organized Health Care Education/Training Program; PCP Physician Assistant
DX: S93.401A Sprain of unspecified ligament of right ankle, initial encounter (principal); S93.601A Unspecified sprain of right foot, initial encounter; J45.909 Unspecified asthma, uncomplicated; G47.30 Sleep apnea, unspecified; X50.1XXA Overexertion from prolonged static or awkward postures, initial encounter
CPT/HCPCS: 73590; 73610; 73630; 99284

== ENCOUNTER 2023-05-10 19:28 | Emergency (ER) | payer OTHER, SELFPAY ==
[2023-05-10 19:29] VITALS: BP 120/72; PULSE 93; RESP 20; TEMP 36.6; O2SAT 98; BMI 40.2
[2023-05-10 19:35] VITALS: BP 120/72; PULSE 96; O2SAT 98
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
--- NOTE | 2023-05-10 19:57 | PC.NURSE ---
spoke with Michael bealroundhouse supervisor @ [facility] to get records of er visit this am
[2023-05-10 20:10] LABS: Microscopic, Urine URINE MICROSCOPIC (MICROSCOPIC)
[2023-05-10 20:18] LABS: Basophils # 0.1 K/mm3 (0-0.2); Basophils % 0.5 % (0.1-2.0); Eosinophils # 0.4 K/mm3 (0.0-0.4); Eosinophils % 4.1 % (0.1-12.0); Hemoglobin 13.7 g/dL (12.2-16.2); Lymphocytes # 2.9 K/mm3 (0.7-4.5); Lymphocytes % 27.6 % (10-50); Mean Corpuscular HGB Conc 32.7 g/dL (31.8-35.4); Mean Corpuscular Hemoglobin 27.2 pg (27.0-31.2); Mean Corpuscular Volume 83.3 fl (81-99); Mean Platelet Volume 9.2 fl (7.4-10.4); Monocytes # 0.5 K/mm3 (0.1-1.0); Monocytes % 4.5 % (1.7-9.3); Neutrophils # 6.7 K/mm3 (1.8-7.8); Neutrophils % 63.4 % (37.0-80.0); Platelet Count 318 K/mm3 (142-424); Red Blood Count 5.05 M/mm3 (4.20-5.40); Red Cell Distribution Width 15.5 % (11.5-17.5); White Blood Count 10.6 K/mm3 (4.8-10.8)
[2023-05-10 20:21] LABS: Urine Pregnancy, HCG Qual. Negative (Negative)
[2023-05-10 20:22] LABS: Appearance,Urine CLEAR (Clear); Bilirubin,Urine Negative (Negative); Blood, Urine Negative (Negative); Color,Urine YELLOW (Yellow); Glucose,Urine (UA) Negative (Negative); Ketones,Urine Negative (Negative); Leukocyte Esterase,Urine Negative (Negative); Nitrate,Urine Negative (Negative); PH,Urine 6.5 (5.0-8.5); Protein,Urine Negative (Negative); Specific Gravity, Urine >= 1.030 (1.005-1.030); Urobilinogen,Urine 0.2 EU/dl (0.2)
[2023-05-10 20:26] LABS: Chloride 106 mmol/L (98-107); Sodium 139 mmol/L (136-145)
[2023-05-10 20:27] LABS: Potassium 3.4 mmoL/L (3.5-5.1)
[2023-05-10 20:29] LABS: Alanine Aminotransferase 31 U/L (12-78); Albumin Level 4.1 g/dl (3.5-5.0); Albumin/Globulin Ratio 1.2 (1.1-1.8); Alkaline Phosphatase 53 U/L (38-126); Anion Gap 5.4 mEq/L (5-15); Aspartate Amino Transferase 38 U/L (14-36); Bilirubin,Total 0.3 mg/dl (0.2-1.3); Blood Urea Nitrogen 11 mg/dl (7-17); Carbon Dioxide 31 mmol/L (22.0-30.0); Creatinine Clearance Estimated 165 mL/min (50-200); Estimated Glomerular Filt Rate 85 ml/min (>60); GFR (African American) 103 ML/MIN (>60); Globulin 3.4 g/dL (1.3-3.2); Total Protein,Serum 7.5 g/dl (6.3-8.2)
[2023-05-10 20:30] LABS: Calcium 9.2 mg/dl (8.4-10.2); Glucose 93 mg/dl (74-100)
--- NOTE | 2023-05-10 20:33 | CT_ITS ---
PROCEDURE INFORMATION: Exam: CTA Abdomen and Pelvis With Contrast Exam date and time: 05/10/2023 8:51 PM Age: 27 years old Clinical indication: Abdominal pain; Acute; Additional info: Trauma, critical injury suspected TECHNIQUE: Imaging protocol: Computed tomographic angiography of the abdomen and pelvis with contrast. Exam focused on the arteries. 3D rendering (Not supervised by radiologist): MIP and/or 3D reconstructed images were created by the technologist. Radiation optimization: All CT scans at this facility use at least one of these dose optimization techniques: automated exposure control; mA and/or kV adjustment per patient size (includes targeted exams where dose is matched to clinical indication); or iterative reconstruction. Contrast material: ISOVUE; Contrast volume: 100 ml; Contrast route: INTRAVENOUS (IV); COMPARISON: CT ABDOMEN PELVIS W CON 03/14/2023 8:40 PM FINDINGS: Aorta: No aortic aneurysm. No aortic dissection. Celiac trunk and mesenteric arteries: No occlusion or significant stenosis. Renal arteries: No occlusion or significant stenosis. Right iliac arteries: No occlusion or significant stenosis. Left iliac arteries: No occlusion or significant stenosis. Liver: Fatty liver. Gallbladder and bile ducts: Cholecystectomy. Pancreas: Unremarkable. No mass. No ductal dilation. Spleen: Unremarkable. No splenomegaly. Adrenal glands: Unremarkable. No mass. Kidneys and ureters: Unremarkable. No solid mass. No hydronephrosis. Stomach and bowel: Unremarkable. No obstruction. No mucosal thickening. Appendix: No evidence of appendicitis. Intraperitoneal space: Unremarkable. No free air. No significant fluid collection. Lymph nodes: Unremarkable. No enlarged lymph nodes. Urinary bladder: Unremarkable. No mass. Reproductive: 3.2 cm left ovarian cyst Bones/joints: No acute fracture. Soft tissues: Unremarkable. IMPRESSION: Unremarkable CTA.
--- NOTE | 2023-05-10 20:33 | CT_ITS ---
PROCEDURE INFORMATION: Exam: CTA Chest With Contrast Exam date and time: 05/10/2023 8:51 PM Age: 27 years old Clinical indication: Pain; Chest pressure; Additional info: Trauma, critical injury suspected TECHNIQUE: Imaging protocol: Computed tomographic angiography of the chest with contrast. Exam focused on the arteries. 3D rendering (Not supervised by radiologist): MIP and/or 3D reconstructed images were created by the technologist. Radiation optimization: All CT scans at this facility use at least one of these dose optimization techniques: automated exposure control; mA and/or kV adjustment per patient size (includes targeted exams where dose is matched to clinical indication); or iterative reconstruction. Contrast material: ISOVUE; Contrast volume: 100 ml; Contrast route: INTRAVENOUS (IV); COMPARISON: CT ANGIO CHEST PE PROTOCOL 11/07/2022 8:14 PM FINDINGS: Pulmonary arteries: Normal. No pulmonary emboli. Aorta: Unremarkable. No aortic aneurysm. No aortic dissection. Lungs: Unremarkable. No consolidation. No masses. Pleural spaces: Unremarkable. No pneumothorax. No pleural effusion. Heart: Unremarkable. No cardiomegaly. No pericardial effusion. Lymph nodes: Unremarkable. No enlarged lymph nodes. Bones/joints: Unremarkable. No acute fracture. Soft tissues: Unremarkable. IMPRESSION: No acute findings.
[2023-05-10 20:39] LABS: WBC,Urine Occasional #/hpf (0-3)
[2023-05-10] MEDS: ACETAMINOPHEN 1,000MG/100ML VIAL 1000 MG IV (20:39)
[2023-05-10 20:40] LABS: Bacteria,Urine Trace /lpf; Mucus,Urine Trace /lpf; Yeast,Urine Occasional /lpf
--- NOTE | 2023-05-10 20:56 | PC.NURSE ---
pt return from ct scan
[2023-05-10] MEDS: SODIUM CHLORIDE 0.9% 10ML SYR (RAD ONLY) 10 ML IV (21:04)
[2023-05-10] MEDS: IOPAMIDOL-370 (76%);100ML BOTTLE 100 ML IV (21:04)
[2023-05-10 22:11] VITALS: BP 124/64; PULSE 78; RESP 18; TEMP 37.1; O2SAT 98
== END 2023-05-10 22:16 | disposition home or self-care (01) ==
PROVIDERS: Emergency Provider Student in an Organized Health Care Education/Training Program; PCP Physician Assistant
DX: R10.30 Lower abdominal pain, unspecified (principal); M54.2 Cervicalgia; S63.502A Unspecified sprain of left wrist, initial encounter; J45.909 Unspecified asthma, uncomplicated; G47.30 Sleep apnea, unspecified; V49.40XA Driver injured in collision with unspecified motor vehicles in traffic accident, initial encounter
CPT/HCPCS: 71275; 74174; 80053; 81001; 81025; 85025; 96374; 99285; J0131; Q9967

== ENCOUNTER 2023-06-05 10:09 | Emergency (ER) | payer BC, OTHER, SELFPAY ==
[2023-06-05 10:10] VITALS: BP 111/77; PULSE 70; RESP 18; TEMP 36.6; O2SAT 96; BMI 40.5
--- NOTE | 2023-06-05 10:32 | ED_ITS ---
Discharge Plan Disposition Patient Disposition: Home, Self-Care Condition: Good Prescriptions Prescriptions: New loratadine 10 mg tablet 10 mg PO DAILY Qty: 30 0RF No Action ibuprofen 800 mg tablet 800 mg PO TID Qty: 90 0RF Vraylar 1.5 mg capsule 1.5 mg PO DAILY Qty: 90 3RF cholecalciferol (vitamin D3) 25 mcg (1,000 unit) capsule 25 mcg PO DAILY Qty: 90 3RF ergocalciferol (vitamin D2) 1,250 mcg (50,000 unit) capsule 1,250 mcg PO WEEKLY Qty: 14 3RF fluticasone propion-salmeterol [Advair Diskus] 100-50 mcg/dose blister with device 1 inh inhalation BID Qty: 60 5RF Nurtec ODT 75 mg tablet,disintegrating 75 mg PO Q OTHER DAY Qty: 16 2RF ropinirole 0.5 mg tablet 0.5 mg PO DAILY Qty: 30 2RF lisdexamfetamine [Vyvanse] 20 mg capsule 20 mg PO DAILY Qty: 30 0RF albuterol sulfate 90 mcg/actuation HFA aerosol inhaler 90 mcg inhalation NEEDED PRN (Reason: Breathing Problems) Rx Instructions: INHALE 2 PUFFS BY MOUTH EVERY 6 HOURS albuterol sulfate 2.5 mg /3 mL (0.083 %) solution for nebulization 2.5 mg inhalation Q6H PRN (Reason: shortness of breath or wheezing) Qty: 90 2RF Referrals Follow up/Referrals: Miesha Schultz PA [Primary Care Provider] - See instructions Clinical Impressions Clinical Impression: Viral upper respiratory illness Instructions Patient Instructions: DI for Viral Upper Respiratory Infection -- Adult Discharge ED Provider: Josi Roblero [facility] General Stated complaint: weakness,body burning, cough Time Seen by Provider: 06/05/23 10:31 History of Present Illness Provider Complaint: Pt states that she has had chills, feeling hot, nausea, diarrhea, pelvic pressure, cough, and runny nose for the last couple of days. 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 Related Data Home Medications Medication Instructions Recorded Confirmed albuterol sulfate 90 mcg/actuation 90 mcg inhalation NEEDED PRN 12/04/22 06/05/23 aerosol inhaler Breathing Problems Previous Rx's Medication Instructions Recorded cariprazine 1.5 mg capsule 1.5 mg PO DAILY Anxiety #90 caps 01/14/23 (Vraylar) cholecalciferol (vitamin D3) 25 25 mcg PO DAILY Supplement #90 caps 01/14/23 mcg (1,000 unit) capsule ergocalciferol (vitamin D2) 1,250 1,250 mcg PO WEEKLY Supplement #14 01/14/23 mcg (50,000 unit) capsule caps fluticasone 100 mcg-salmeterol 50 1 inh inhalation BID Asthma #60 ea 01/14/23 mcg/dose blistr powdr for inhalation (Advair Diskus) albuterol sulfate 2.5 mg/3 mL 2.5 mg (3 mL) inhalation Q6H PRN 04/06/23 (0.083 %) solution for nebulization shortness of breath or wheezing #90 mL ibuprofen 800 mg tablet 800 mg PO TID post op pain #90 tabs 05/18/23 rimegepant 75 mg disintegrating 75 mg PO Q OTHER DAY migraines #16 05/26/23 tablet (Nurtec ODT) tabs ropinirole 0.5 mg tablet 0.5 mg PO DAILY #30 tabs 05/26/23 lisdexamfetamine 20 mg capsule 20 mg PO DAILY #30 caps 05/27/23 (Vyvanse) loratadine 10 mg tablet 10 mg PO DAILY #30 tabs 06/05/23 Allergies Allergy/AdvReac Type Severity Reaction Status Date / Time ondansetron [From Zofran] Allergy Redness of Verified 06/05/23 10:41 Skin latex AdvReac Verified 06/05/23 10:41 PFS PFS Disclaimer: The information contained in this section may have been updated after the patient was seen, as this information can be updated by other users. Medical History Abdominal pain Anxiety Apneic episode Asthma Bilateral tinnitus Buttocks nodule Post surgical wound dehiscence Culture obtained Wet to dry dressings, try to avoid dragging when sitting/changing positions Chronic eustachian tube dysfunction Cryptic tonsil Depression Deviated nasal septum Dysphagia Frequent loose stools Hemangioma of liver Hypertrophy of nasal turbinates Left ear pain Otosclerosis Palpitations Skin tag SKIN TAG REMOVED Sleep apnea Snoring Tonsillectomy planned Surgical History Carpal tunnel syndrome History of placement of ear tubes Hx of cholecystectomy Family History Grandmother Hypertension Stroke Grandfather Heart attack Hypertension Father Hypertension Crohn disease Other Asthma Social History Smoking Status: Never smoker alcohol intake: former substance use type: marijuana current occupational status: employed Travel in the last 8 weeks: None ROS Obtained: Yes All systems reviewed & no additional complaints except as documented Constitutional Constitutional: Reports system reviewed and no additional complaints, except as documented, Reports chills and Reports malaise Eyes Eyes: Reports system reviewed and no additional complaints, except as documented ENT Ears, Nose, Mouth, and Throat: Reports system reviewed and no additional complaints, except as documented and Reports nasal discharge Cardiovascular Cardiovascular: Reports system reviewed and no additional complaints, except as documented Respiratory Respiratory: Reports system reviewed and no additional complaints, except as documented and Reports non-productive cough Gastrointestinal Gastrointestingal: Reports system reviewed and no additional complaints, except as documented, diarrhea and nausea Comments: states that she has had diarrhea since having her gallbladder removed. Genitourinary Female Genitourinary: Reports system reviewed and no additional complaints, except as documented Musculoskeletal Musculoskeletal: Reports system reviewed and no additional complaints, except as documented Integumentary/Breasts Skin/Breast: Reports system reviewed and no additional complaints, except as documented Neurologic Neurologic: Reports system reviewed and no additional complaints, except as documented Endocrine Endocrine: Reports system reviewed and no additional complaints, except as documented Hematologic/Lymphatic Henatologic/Lymphatic: Reports system reviewed and no additional complaints, except as documented Allergic/Immunologic Allergic/Immunologic: Reports system reviewed and no additional complaints, except as documented Physical Exam General General appearance: alert and in no apparent distress Head Head exam: atraumatic and normocephalic Eye Eye exam: Present normal appearance Expanded ENT Exam External ear exam: Present normal external inspection TM/Canal exam: Bilateral TM: foreign body (ear tubes present and patent) Nasal speculum exam: Bilateral: normal Mouth exam: Present normal external inspection Teeth exam: Present normal inspection Comment: tonsils absent Neck Neck exam: Present normal inspection Chest Chest inspection: Present normal inspection and symmetric chest wall rise Respiratory Respiratory exam: Present normal lung sounds bilaterally Cardiovascular Cardiovascular exam: Present regular rate and normal rhythm Abdominal Exam Abdominal exam: Present soft, tenderness and normal bowel sounds Abdominal tenderness: Present LLQ Extremities Exam Extremities exam: Present normal inspection Back Exam Back exam: Present normal inspection Neurological Exam Neurological exam: Present alert and oriented X3 Psychiatric Psychiatric exam: Present normal affect and normal mood Skin Skin exam: Present warm, dry and intact Lymphatic Lymphatic Findings: no adenopathy Medical Decision Making Leo Inquiry Pt receiving controlled substance: No Leo was queried for this patient: No
[2023-06-05 10:45] LABS: Apearance,Urine Clear (Clear); Color,Urine Yellow (Yellow); PH,Urine 5.5 (5.0-8.5)
[2023-06-05 10:46] LABS: Bilirubin,Urine Negative (Negative); Blood, Urine Trace (Negative); Glucose,Urine (UA) Negative (Negative); Ketones,Urine Negative (Negative); Protein,Urine Negative (Negative); Specific Gravity, Urine 1.025 (1.005-1.030); UTC Leukocyte Esterase,Urine Negative (Negative); UTC Nitrate,Urine Negative (Negative); Urobilinogen,Urine 0.2 EU/dl (0.2)
[2023-06-05 10:49] LABS: UTC Strep Screen (Rapid) Negative (Negative)
[2023-06-05 10:50] LABS: UTC Influenza A Antigen Negative (Negative); UTC Influenza B Antigen Negative (Negative)
[2023-06-05 11:05] VITALS: BP 111/77; PULSE 70; RESP 18; TEMP 36.6; O2SAT 96
== END 2023-06-05 11:05 | disposition home or self-care (01) ==
PROVIDERS: Emergency Provider Nurse Practitioner Family; PCP Physician Assistant
DX: J06.9 Acute upper respiratory infection, unspecified (principal); R05.9 Cough, unspecified; R09.81 Nasal congestion; R11.0 Nausea; R19.7 Diarrhea, unspecified; B34.9 Viral infection, unspecified
CPT/HCPCS: 81003; 87804; 87880; 99212; 99214; G0463

== ENCOUNTER 2023-07-12 15:16 | Outpatient (CLI) | payer OTHER, BC, SELFPAY ==
--- NOTE | 2023-07-12 15:18 | MR_ITS ---
FINAL REPORT TECHNIQUE: Multiplanar MR without contrast. CLINICAL HISTORY: Lt Wrist Pain FINDINGS: The osseous structures have an unremarkable appearance. Specifically no evidence of fracture or bone contusion is present. Carpal tunnel is unremarkable. The TFCC is intact. Visualized tendons are unremarkable. Major ligaments are intact. No cystic or soft tissue mass lesion is seen. IMPRESSION: Unremarkable exam. Reviewed, Interpreted and Dictated by Hillary Rhodes MD Transcribed by Shirin Coulter Authenticated and [facility]
== END 2023-07-12 23:59 | disposition home or self-care (01) ==
LOC: RAD 15:18
PROVIDERS: PCP Physician Assistant; Visit Provider Orthopaedic Surgery
DX: M25.532 Pain in left wrist (principal); S63.502A Unspecified sprain of left wrist, initial encounter
CPT/HCPCS: 73221